=== PATIENT | female | born 1935 | race Caucasian/White ===

== ENCOUNTER 2017-09-14 15:36 | Emergency (ER) | payer MEDICARE, BC ==
--- NOTE | 2017-09-14 19:11 | RAD ---
INDICATION: Cough x2 weeks COMPARISON: None TECHNIQUE: PA and lateral views of the chest were obtained. FINDINGS: Again noted are surgical clips overlying the left axilla. The heart and mediastinum are normal in size and contour. There is been interval appearance of a 1.1 cm elongate density overlying the mid-level left lung and was not definitely seen on the most recent chest x-ray. On the lateral view this density is likely seen in the anterior left lung and has a density more consistent with a granuloma as opposed to a soft tissue nodule. Otherwise the lungs are grossly clear. There is no evidence of large pleural effusion. Visualized bones are normal for the patient's age. There is no radiographic evidence of free air beneath the diaphragm IMPRESSION: LIKELY INTERVAL APPEARANCE OF PARTIALLY CALCIFIED LUNG NODULE DESCRIBED ABOVE IN THIS OTHERWISE NONACUTE CHEST X-RAY.
[2017-09-14 19:47] VITALS: BP 136/70
--- NOTE | 2017-09-14 21:19 | UC ---
Charley Galindo Julia, scribed for Nghia Gonsalves MD on 09/14/17 at 1821 . General HPI - HPI Summary HPI Summary: This patient is a 82 year old M presenting to [facility] accompanied by her with a chief complaint of cough and chest congestion since a influenza diagnosis on 08/30/17 worsening this morning. Patient reports fatigue, weakness, SOB since this morning, clear rhinorrhea, decreased appetite, and currently resolved mild nausea. Patient denies chest pain, ear pain, urinary symptoms, diarrhea, body aches, and bloody stool. Today she states a low blood glucose of 81, that she was able to get up to 121. - History of Current Complaint Chief Complaint: UCRespiratory Stated Complaint: RESP COMPLAINT Time Seen by Provider: 09/14/17 18:06 Hx Obtained From: Patient Hx Last Menstrual Period: NA Onset/Duration: Lasting Weeks, Still Present, Worse Since - this morning Timing: Constant Pain Intensity: 0 Pain Location at: negative Character: chest congestion Associated Signs & Symptoms: Positive: Other - reports fatigue, weakness, SOB since this morning, clear rhinorrhea, decreased appetite, and currently resolved mild nausea - Allergy/Home Medications Allergies/Adverse Reactions: Allergies Allergy/AdvReac Type Severity Reaction Status Date / Time MS Amoxicillin [Amoxicillin] Allergy Rash Verified 09/14/17 16:08 MS Penicillins [Penicillins] Allergy Hives Verified 09/14/17 16:08 MS KIZZY Inhibitors AdvReac Coughing Verified 09/14/17 16:08 [KIZZY Inhibitors] MS Codeine [Codeine] AdvReac Dizziness, Verified 09/14/17 16:08 sweating MS Tramadol [Tramadol] AdvReac Nausea Verified 09/14/17 16:08 PMH/Surg Hx/FS Hx/Imm Hx Endocrine History: Diabetes Other Cardiovascular History: denies hx of CHF - Surgical History Surgical History: Yes Surgery Procedure, Year, and Place: APPENDIX. Tonsillectomy. right breast biopsy. right big toe neuroma. histerectomy. sgmental mastectomy. colon surgery - secall mass, no cancer. right eye cataract. ureter stent x4. left eye cataract. left knee arthroscopy - Family History Known Family History: Negative: Cardiac Disease, Diabetes Family History: Pt denies family medical history. - Social History Alcohol Use: None Substance Use Type: None Smoking Status (MU): Never Smoked Tobacco Have You Smoked in the Last Year: No Review of Systems Constitutional: Fatigue - and weakness ENT: Negative - ear ache, Nasal Discharge Respiratory: Shortness Of Breath, Cough - with chest congestion, Other Cardiovascular: Negative - chest pain Gastrointestinal: Negative - diarrhea, bloody stool, Nausea - currently resolved , Other - decreased appetite Genitourinary: Negative All Other Systems Reviewed And Are Negative: Yes Physical Exam Triage Information Reviewed: Yes Vital Signs: Initial Vital Signs Temp 98.5 F 09/14/17 16:02 Pulse 76 09/14/17 16:02 Resp 20 09/14/17 16:02 BP 148/70 09/14/17 16:02 Pulse Ox 96 09/14/17 16:02 Vital Signs Reviewed: Yes - Additional Comments General: mild ill appearing, no pain distress Skin: warm, color reflects adequate perfusion, dry Head: normal Eyes: EOMI, OCTAVIO ENT: rhinorrhea Neck: supple, nontender Respiratory: CTA, breath sounds present Cardiovascular: RRR Abdomen: soft, nontender Bowel: present Musculoskeletal: normal, strength/ROM intact, no pedal edema Neurological: normal, sensory/motor intact, A&O x3 Psychological: affect/mood appropriate Diagnostics - Radiology CXR Radiology Interpretation Completed By: Radiologist - LIKELY INTERVAL APPEARANCE OF PARTIALLY CALCIFIED LUNG NODULE DESCRIBED ABOVE IN THIS OTHERWISE NONACUTE CHEST X-RAY. ED Physician has reviewed this report. Course/Dx - Course Course Of Treatment: BP noted and advised to follow up with PCP. DISCUSSED TREATING WITH ABX AND CLOSE F/U WITH PMD. DISCUSSED WE DO NOT HAVE LABS THAT WILL COME BACK UNTIL TOMORROW. PATIENT DECLINED LAB WORK HERE IN CLINIC. DISCUSSED GOING TO THE EMERGENCY DEPARTMENT FOR ANY WORSENING OF HER CONDITION. F/U PMD; GO TO ED IF WORSE. - Differential Dx - Multi-Symptom Provider Diagnoses: BRONCHITIS. PULMONARY NODULE Discharge - Discharge Plan Condition: Stable Disposition: HOME Prescriptions: Azithromyxin KASH (NF) [Z-Kash (Zithromax) 250 mg tabs #6] 2 tab PO .TODAY, THEN 1 DAILY #6 tab Patient Education Materials: Acute Bronchitis (ED), Pulmonary Nodules (ED) Referrals: Jing Montiel MD [Primary Care Provider] - Additional Instructions: Your blood pressure was elevated during todays visit; please follow up with your primary care provider within a week for further evaluation. FOLLOW UP WITH YOUR DOCTOR. GO TO THE EMERGENCY DEPARTMENT FOR ANY WORSENING OF YOUR CONDITION OR QUESTIONS OR CONCERNS. The documentation as recorded by the Charley milian Julia accurately reflects the service I personally performed and the decisions made by me, Nghia Gonsalves MD.
== END 2017-09-14 19:35 | disposition home or self-care (01) ==
LOC: UCEAST 15:36
DX: J40 Bronchitis, not specified as acute or chronic (principal); R91.1 Solitary pulmonary nodule; Z88.5 Allergy status to narcotic agent; Z88.0 Allergy status to penicillin; E11.9 Type 2 diabetes mellitus without complications
CPT/HCPCS: 71046; 99212; G0463

== ENCOUNTER 2018-04-15 06:13 | Observation (INO) | payer MEDICARE, BC ==
--- NOTE | 2018-04-08 10:12 | HP ---
CC: Dr. Jing Montiel; Dr. Neal * PREOPERATIVE HISTORY AND PHYSICAL: DATE OF ADMISSION: 04/15/18 DATE OF PREOPERATIVE HISTORY AND PHYSICAL: 04/06/18. This patient is scheduled for observation overnight on 04/15/18 for a left mastectomy by Dr. Correa. ATTENDING SURGEON: Dr. Tasha Correa * (dictated by Love Gomez NP). CHIEF COMPLAINT: Left breast cancer. HISTORY OF PRESENT ILLNESS: The patient is an 82-year-old female, recently evaluated by Dr. Correa for consideration of mastectomy for left breast cancer. She had not noticed any breast changes herself, but a routine mammogram picked up a new change. She underwent biopsies of 2 areas in the left breast and both show cancer. They have been described as somewhat far from each other, so a left mastectomy has been advised. She denies any breast pain or nipple discharge. Her daughter had breast cancer at age 41 and 56. The patient's menarche was at 11, menopause at age 54, first delivery at age 20. She has never had any relatives with ovarian cancer. She did receive radiation to the chest for left breast cancer previously some years ago. Dr. Correa has examined the patient and discussed the findings with her. She has recommended left mastectomy and explained the rationale for the surgery, the nature of the surgical procedure, the relevant risks and benefits and today, I reviewed the overnight stay in hospital, the use of a Diego- Daniel drain, and postoperative care and recovery. The patient has had a chance to ask questions and stated that she is comfortable with the information and the answers given to her questions. She will sign surgical consent on the day of surgery. PAST MEDICAL HISTORY: Significant for insulin-treated type 2 diabetes, hypertension, hypothyroidism, renal insufficiency with one well-functioning kidney, gastroesophageal reflux disease, dyslipidemia, left breast cancer, colon cancer, and osteoarthritis specifically in the pelvic region and hips. PAST SURGICAL HISTORY: Segmental left mastectomy for breast cancer in 1990, colon resection for colon cancer 2000, left knee arthroscopy surgery, bilateral cataract extractions, hysterectomy, tonsillectomy, and appendectomy. She also had ureteral stents for nephrolithiasis. MEDICATIONS: 1. Omeprazole 20 mg p.o. daily. 2. Lantus SoloSTAR 64 units subcutaneously every morning. 3. Allopurinol 100 mg p.o. daily. 4. Atenolol 25 mg p.o. daily. 5. Atorvastatin 10 mg 2 tablets p.o. every 3 days. 6. Hydrochlorothiazide 12.5 mg p.o. daily. 7. Levothyroxine 125 mcg p.o. daily. 8. Losartan 50 mg p.o. daily. 9. Potassium citrate extended release 5 mEq 2 tablets p.o. 4 times a day. 10. Vitamin B12 of 1000 mcg p.o. daily. 11. Vitamin D3 of 1000 international units daily. 12. Fluticasone 2 sprays in each nostril daily. ALLERGIES: PENICILLIN caused hives, PREVNAR caused fever and arm swelling. FAMILY HISTORY: Daughter with history of breast cancer. No known ovarian cancer. Father at age 79 with history of abdominal aneurysm. Mother at age 85 with history of colon cancer. 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 She denies the use of alcohol or other substances. REVIEW OF SYSTEMS: Constitutional: No fevers or chills or excessive fatigue or weight loss. Endocrine: Type 2 diabetes, insulin dependent. Fingerstick blood sugar at home in the morning 110 to 120, recent hemoglobin A1c of 6.9. She is also treated for hypothyroidism. Respiratory: No dyspnea on exertion. No chronic cough. Cardiovascular: No chest pain or palpitations. She did have an EKG on 01/28/[address] Powell's office that was read as abnormal; she had an echocardiogram on 02/01/18 with ejection fraction of 55%; because of the abnormal EKG, Dr. Montiel initiated a preoperative cardiac workup through the [facility] and the patient is scheduled for a stress treadmill test and an echocardiogram on 04/13/18 and a followup visit with Dr. Neal on that same day; we will obtain those results as soon as possible to determine if she can proceed with surgery as scheduled. She is treated for hypertension by Dr. Montiel. Gastrointestinal: She is treated for GERD; she denies any nausea, vomiting, diarrhea, or chronic constipation. She denies any blood per rectum. She had surgery for colon cancer in 2000 and did not require chemotherapy or radiation. Genitourinary: She is followed by Dr. Acharya for renal insufficiency and states that she has one functioning kidney and had nephrolithiasis with ureteral stents in 2006; her serum creatinine is typically elevated and the most recent one on 04/06/18 was 1.46, in August of 2017 it was 1.54. She denies any dysuria. Musculoskeletal: She has osteo-arthritis, specifically in the pelvic region and hips and at some point wishes to undergo hip replacement. Neurologic: She denies any history of concussion or seizures or blurred vision. General: She denies any history of deep vein thrombosis or pulmonary embolism. She has never received a blood transfusion. She states with general anesthesia, she has a slow recovery and has had vomiting. PHYSICAL EXAMINATION GENERAL SURVEY: The patient is an 82-year-old female, well-developed, well- nourished, obese, in no acute distress. VITAL SIGNS: Height 5 feet 4 inches, weight 215 pounds, body mass index 36.9. Blood pressure 126/78, pulse 66 and regular, respiratory rate 18, temperature 97.5. HEENT: Benign. NECK: Supple. No cervical lymphadenopathy. No thyromegaly. LUNGS: Breath sounds bilaterally clear and equal. HEART: Regular rate and rhythm. No murmurs or rubs appreciated. ABDOMEN: Active bowel sounds, well-healed surgical scars, soft, nondistended, nontender throughout. No obvious masses, organomegaly, or evidence of ventral hernia. BREASTS: Left breast is smaller and deformed from scars in the upper outer quadrant and axilla; there is also a small scar in the lateral inner quadrant of the right breast close to the nipple areolar complex; palpation revealed dense tissue without discrete mass in the right breast; the left breast has a large firm irregular area in the upper outer quadrant that is fixed to the overlying skin, but not to the chest wall. There is also a smaller firm irregular area in the left outer quadrant. There is no nipple discharge. There is no palpable supraclavicular lymphadenopathy. There is no adenopathy in the right axilla, but the scar tissue in the left axilla limits the ability to assess. BACK: No CVA tenderness. PELVIC: Exam is deferred. RECTAL: Exam is deferred. EXTREMITIES: Warm without skin ulcerations. There is nonpitting edema of both ankles. NEUROLOGIC: Alert and oriented x3. Steady gait. SKIN: Warm, dry, intact. IMPRESSION: Left breast cancer. PLAN: Admit to Dr. Correa's service for an overnight observation after left mastectomy on 04/15/18. EFRAIN GOMEZ, STAPLE CUTTER [id number]/[facility] #: [id number] SACHIN
[~2018-04-15 06:13] MED LIST: Buffered Lidocaine 0.9% SYRIN* 5 ML/SYR SYRINGE INTRADERM ONE; DiMENhydriNATE IV* 50 MG/ML VIAL IV PUSH PRN; Famotidine IV* 10 MG/ML 2 ML (20 mg) IV ONE; Morphine INJ* 2 MG/ML 1 ML SYRINGE (TWO MG - NEW SYRINGE VERSION) IV PRN; Naloxone* 0.4 MG/ML 1 ML VIAL IV PRN; Ondansetron TAB* 4 MG PO ONE; PROCHLORPERAZINE INJ 5 MG/ML 2 ML VIAL IV PRN; fentaNYL* 50 MCG/ML 2 ML VIAL (100 MCG VIAL) IV PRN; oxyCODONE/Acetamin 5/325 MG* TAB PO PRN
[2018-04-15] MEDS ORDERED: Clindamycin 900 MG/D5W BAG(*) 900 MG/50 ML BAG IVPB ONE (07:01)
[2018-04-15] MEDS ORDERED: Heparin VIAL(*) 5000 UNITS/ML VIAL (FIVE THOUSAND) ONE (07:01)
[2018-04-15] MEDS ORDERED: Bupivacaine 0.25% SDV PF* 10 ML VIAL INJ ONE (07:03)
[2018-04-15] MEDS ORDERED: Famotidine IV* 10 MG/ML 2 ML (20 mg) ONE (07:07)
[2018-04-15] MEDS ORDERED: Ondansetron ODT TAB* 4 MG ONE (07:07)
[2018-04-15] MEDS ORDERED: fentaNYL* 50 MCG/ML 2 ML VIAL (100 MCG VIAL) ONE ×2 (07:20→10:03)
[2018-04-15] MEDS ORDERED: KETAMINE HCL* 50 MG/ML 10 ML VIAL ONE (07:20)
[2018-04-15] MEDS ORDERED: Midazolam* 1 MG/ML 2 ML VIAL (2 MG) ONE (07:20)
[2018-04-15] MEDS ORDERED: Morphine VIAL* 10 MG/ML 1 ML VIAL ONE (08:47)
[2018-04-15] MEDS ORDERED: Propofol* 10 MG/ML 20 ML BTL IV PUSH ONE (09:13)
[2018-04-15] MEDS ORDERED: Lidocaine 2% PF * 5 ML VIAL ONE (09:13)
--- NOTE | 2018-04-15 09:30 | OP ---
Operative Report - Blank - Operative Report Date of Operation: 04/15/18 Note: Brief Operative Note Preop Dx: Left Breast Cancer Postop Dx: same Procedure: Left Mastectomy Anesthesia: GET Surgeon: Sunny Electrical Tech: SUZE Claudio Fluids: 850 ml crystalloid EBL: < 50 ml Specimen: Left Breast; add'l skin Drains: 1 BERNADETTE Findings: dictated
[2018-04-15] MEDS ORDERED: Acetaminophen TAB* 325 MG PO PRN (09:41)
[2018-04-15] MEDS ORDERED: Omeprazole CAP* 20 MG PO PRN (09:45)
[2018-04-15] MEDS ORDERED: Dextrose 50% Syringe 50 ML* 25 GM/50 ML SYRINGE IV PUSH PRN (09:52)
[2018-04-15] MEDS ORDERED: HYDROcodone/ACETAMIN 5-325 MG* 1 TAB PO PRN (09:53)
[2018-04-15] MEDS ORDERED: Morphine INJ* 2 MG/ML 1 ML SYRINGE (TWO MG - NEW SYRINGE VERSION) IV PRN (10:02)
[2018-04-15] MEDS ORDERED: Ondansetron INJ* 2 MG/ML VIAL ONE (11:30)
[2018-04-15] MEDS: Ondansetron INJ* 2 MG/ML VIAL IV PRN ×2 (11:32→17:49)
[2018-04-15] MEDS: Insulin LISPRO* 1 UNITS UNIT SUBCUT SCH ×2 (13:13→17:58)
[2018-04-15] MEDS ORDERED: PROCHLORPERAZINE INJ 5 MG/ML 2 ML VIAL IV PRN (14:40)
[2018-04-15 14:58] LABS: ABS Basophils 0 10^3/ul (0-0.2); ABS Eosinophils 0 10^3/ul (0-0.6); ABS Lymphocytes 0.8 10^3/ul (1.0-4.8); ABS Monocytes 0.4 10^3/ul (0-0.8); ABS Neutrophils 7.2 10^3/ul (1.5-7.7); ABS Nucleated RBC 0 10^3/ul; Eosinophil % 0.5 % (0-6); Hematocrit 36 % (35-47); Lymphocyte % 8.9 % (25-47); Mean Corpuscular HGB Conc 33 g/dl (31-36); Mean Corpuscular Hemoglobin 29 pg (27-31); Mean Corpuscular Volume 89 fL (80-97); Mean Platelet Volume 10.4 um3 (7.4-10.4); Nucleated Red Blood Cells % 0; Platelet Count 131 10^3/ul (150-450); Red Blood Count 4.07 10^6/ul (4.00-5.40); Red Cell Distribution Width 16 % (10.5-15); White Blood Count 8.5 10^3/ul (3.5-10.8)
--- NOTE | 2018-04-15 15:05 | RAD ---
INDICATION: Shortness of breath. COMPARISON: Comparison is made with a prior study from November 09, 2017. TECHNIQUE: A portable view of the chest was obtained. FINDINGS: Cardiac and mediastinal contours appear to be within normal limits. The lungs are clear. No pleural effusion is seen. There is a surgical drain which projects over the left hemithorax. There are several surgical clips in the left axillary region. IMPRESSION: NO EVIDENCE FOR ACUTE DISEASE.
[2018-04-15 16:20] LABS: EGFR Non-African American 31.7 (>60)
[2018-04-15] MEDS: Potassium Citrate (NF) 10 MEQ TAB PO SCH (21:00)
--- NOTE | 2018-04-15 23:25 | CONS ---
CC: Dr. Jing Montiel.* CONSULTATION REPORT: DATE OF CONSULT: 04/15/18 PROVIDER: Johnnie Ahumdaa NP ATTENDING PHYSICIAN: Dr. Sinclair (report dictated by Johnnie Ahumada NP). PRIMARY CARE PROVIDER: Dr. Jing Montiel. REFERRING PHYSICIAN: Dr. Tasha Correa. REASON FOR CONSULT: Shortness of breath and co-medical management. HISTORY OF PRESENT ILLNESS: Ms. Stack is an 82-year-old female, who underwent an elective left mastectomy today for left breast cancer with Dr. Tasha Correa. She has a past medical history significant for insulin-dependent type 2 diabetes, hypertension, hypothyroidism, renal insufficiency, GERD, history of prior left breast cancer, history of colon cancer. Today, the patient had a successful surgery. Hospital Medicine was asked to consult regarding the patient complaining of shortness of breath and co-medical management. The patient was seen and evaluated on the surgical unit where she was found to be lying in bed, reporting she has had some mild dizziness with nausea and dry heaving postoperatively. Per the patient, this is common for her postoperatively from prior surgeries. She received some Zofran, which did not relieve her symptoms. However, she does report currently she feels a little better. In regards to her shortness of breath, she reported that it was "difficult to breathe," however, this was secondary to her bandage on the chest wall being too tight and once Dr. Correa loosened the bandage, she said that it resolved the feeling of not being able to take a deep breath. She currently denies shortness of breath or chest pain. She currently reports that her postoperative pain is well controlled at this time. She states that her diabetes is well controlled at home with blood sugars ranging from low 100s to 120. She took half dose of her Lantus this morning prior to surgery, which was 25 units. Family is at the bedside. PAST MEDICAL HISTORY: 1. Insulin-dependent type 2 diabetes. 2. Hypertension. 3. Hypothyroidism. 4. Renal insufficiency with 1 well functioning kidney. 5. GERD. 6. Dyslipidemia. 7. History of left breast cancer. 8. History of colon cancer. 9. Osteoarthritis. PAST SURGICAL HISTORY: 1. Segmental left mastectomy for breast cancer in 1990. 2. Colon resection for colon cancer in 2000. 3. Left knee arthroplasty. 4. Bilateral cataract extractions. 5. Hysterectomy. 6. Tonsillectomy. 7. Appendectomy. 8. History of ureteral stents for nephrolithiasis. MEDICATIONS: Home medications: 1. Hydrochlorothiazide 12.5 mg p.o. q.a.m. 2. Potassium citrate 10 mEq p.o. b.i.d. 3. Omeprazole 20 mg p.o. q.a.m. p.r.n. 4. Losartan 50 mg p.o. q.a.m. 5. Synthroid 125 mcg p.o. q.a.m. 6. Insulin glargine 60 units subcu q.a.m. 7. Vitamin B12 1000 mcg p.o. q.a.m. 8. Vitamin D3 one tab p.o. q.a.m. 9. Lipitor 10 mg p.o. q.a.m. 10. Atenolol 25 mg p.o. q.a.m. 11. Allopurinol 100 mg p.o. q.a.m. Active medications: 1. Acetaminophen 650 mg p.o. q.4 hours p.r.n. 2. Atenolol 25 mg p.o. q.a.m. 3. Lipitor 10 mg p.o. q.a.m. 4. Mcfaddin 5/325 mg 1 tab p.o. q.4 hours p.r.n. 5. Lantus 30 units subcu q.a.m. 6. Lispro sliding scale. 7. LR 70 mL an hour. 8. Synthroid 125 mcg p.o. q.a.m. 9. Morphine sulfate 2 mg IV q.4 hours p.r.n. 10. Omeprazole 20 mg p.o. daily. 11. Zofran 4 mg IV q.6 hours p.r.n. 12. Potassium citrate 10 mEq p.o. b.i.d. ALLERGIES: AMOXICILLIN, CODEINE, PENICILLIN, TRAMADOL, KIZZY INHIBITORS, PNEUMOCOCCAL VACCINATION. FAMILY HISTORY: Her daughter has a history of breast cancer. Her mother at age 85 of a history of colon cancer. Father had a history of abdominal aneurysm. SOCIAL HISTORY: She is . She lives at home with her , who is her healthcare proxy. Denies history of tobacco abuse. No alcohol use. REVIEW OF SYSTEMS: A 14-point review of systems was performed. All the pertinent positives and negatives are mentioned in the history of present illness. Otherwise are negative. PHYSICAL EXAM: Vital Signs: Temperature 97.3, heart rate 74, respirations 16, O2 sat 100% on room air, blood pressure 116/54. General Appearance: A well- developed, ill 82-year-old female, lying in bed. It appears that she feels mildly unwell; however, she is alert and oriented x3. HEENT: Head is normocephalic and atraumatic. Pupils are equal and reactive to light. Oropharynx is clear. Dry mucous membranes. Neck is supple. Cardiac: S1, S2. Regular rate and rhythm. No murmur are noted. No lower extremity edema noted. Lungs are clear to auscultation bilaterally with good aeration throughout. Abdomen: Obese, soft. Hyperactive bowel sounds throughout. No tenderness upon palpation. Extremities: Moves all extremities. Strength is 5/ 5 throughout. Neuro: Alert and oriented x3. No focal deficits noted. Speech is clear. ASSESSMENT AND PLAN: Ms. Stack is an 82-year-old female with a history of left breast cancer, who underwent a left breast mastectomy today with Dr. Correa. [facility] Medicine was asked to consult in regards to shortness of breath and co- medical management. 1. Status post left mastectomy. Disposition per Dr. Correa's surgical team. The patient is having some postop nausea, vomiting, and dizziness. She currently reports she feels a little bit better. Recommend to continue IV fluids, Zofran p.r.n. We will try a dose of Compazine to see if this helps. Once this has resolved, I encouraged the patient to ambulate with staff due to she has some gas and bloating and this may make her feel better with movement. Pain management. Bowel regimen. 2. Shortness of breath. As stated in the HPI, this was secondary to her postsurgical band being too tight around the chest wall. This has been loosened and the sensation has resolved. I did obtain a chest x-ray, which shows no evidence for acute disease. She is oxygenating well on room air. 3. Insulin-dependent type 2 diabetes. Fingerstick blood glucose a.c. with lispro sliding scale. Agree with the surgical team's plan to reduce her home dose Lantus to 50% starting with 30 units subcu q.a.m. She did give herself 25 units this morning. Currently, her sugars are well controlled. Last hemoglobin A1c was 6.8 on 08/06/17. 4. Chronic kidney disease. It appears baseline creatinine is around 1.5. I have sent a BMP to check labs post-operatively. 5. Gastroesophageal reflux disease. Continue omeprazole. 6. Hypertension. Continue atenolol. 7. Hyperlipidemia. Continue Lipitor. 8. Hypothyroidism. Continue Synthroid. 9. DVT prophylaxis: SCDs. 10. Code status: Full code. TIME SPENT: Approximately 45 minutes was spent on this consultation. JOHNNIE AHUMADA, SILK PRINTER [id number]/[facility] #: [id number] SACHIN
[2018-04-16] MEDS ORDERED: Levothyroxine TAB* 125 MCG TAB PO SCH (06:00)
--- NOTE | 2018-04-16 07:19 | OP ---
CC: [facility]; Dr. Jing Montiel. OPERATIVE REPORT: DATE OF OPERATION: 04/15/18 DATE OF : 33 SURGEON: Tasha Correa MD ADULT MANAGER: SUZE Avelar ANESTHESIOLOGIST: ANESTHESIA: PRE-OP DIAGNOSIS: Left breast cancer POST-OP DIAGNOSIS: Left breast cancer OPERATIVE PROCEDURE: Left mastectomy INDICATIONS: Ms. Stack is an 82-year-old woman who has had a diagnosis of breast cancer being fco kathrin with hormonal therapy. She seemed to respond somewhat to the hormonal therapy, and plans were ma de for surgical intervention. She was brought to the operating room and placed on the OR table in a supine position and given general anesthesia. DESCRIPTION OF PROCEDURE: The left breast was prepped and draped in the usual sterile fashion. Afte r infiltrate with local anesthetic an incision was made first in the superior breast encompassing the nipple areolar complex and the mass which was on the upper outer quadrant of the breast and noted to be adherent to the skin, but not to the chest wall. Then subcutaneous tissue was divided with elect rocautery to create flaps medially to the sternum, superiorly to the clavicle and laterally to the la tissimus dorsi muscle. Then an inferior incision was made encompassing the nipple areolar complex an d the mass and this created an ellipse of skin around the nipple areolar complex and the mass itself, subcutaneous tissue was then divided with electrocautery again to create flaps medially to the edmond um, inferiorly to the rectus muscle and laterally to the latissimus dorsi muscle. Once the breast wa s completely freed from the skin, it was elevated off the chest wall and using electrocautery divided from the chest wall. Once it was removed, it was handed off as a specimen with the usual markings. Hemostasis was assured with electrocautery and then closure was accomplished in order to create a sm ooth contour of the chest wall, some excess skin had to be removed from the medial aspect of the inci puneet and the lateral aspect of the incision. These were also handed off as specimen and then closure was accomplished with 2-0 Vicryl to reapproximate the subcutaneous tissue along with some 3-0 Vicryl stitches and then the skin was closed with 4-0 Vicryl in a subcuticular fashion. Prior to completin g the closure a BERNADETTE drain was placed under the flaps of the mastectomy site emerging from a stab wound in the anterior axillary line inferiorly. This was secured with a 3-0 Prolene stitch. Local was in stilled through the BERNADETTE once closure was completed and Steri-Strips and a dry fluffy dressing were nic lied. All sponge and instrument counts were correct. The patient tolerated the procedure well and w as transferred to Recovery in a stable condition. [id number]/[facility] #: [id number]
[2018-04-16 07:50] VITALS: BP 117/49
[2018-04-16] MEDS: Insulin LISPRO* 1 UNITS UNIT SUBCUT SCH (08:15)
[2018-04-16] MEDS ORDERED: Atenolol TAB* 25 MG PO SCH (09:00)
[2018-04-16] MEDS ORDERED: Atorvastatin* 20 MG TAB PO SCH (09:00)
[2018-04-16] MEDS ORDERED: Insulin GLARGINE(*) 1 UNITS UNIT SUBCUT SCH (09:00)
[2018-04-16] MEDS: Potassium Citrate (NF) 10 MEQ TAB PO SCH (09:06)
--- NOTE | 2018-04-16 09:27 | PN ---
Progress Note - Progress Note Date of Service: 04/16/18 Note: Surgery Ms. Stack feels better this morning. Appreciate input from hospitalist service. She has not yet had real food, but she is willing to try. She denies pain. Vital Signs 04/15/18 04/15/18 04/15/18 09:30 09:35 09:45 Temperature Pulse Rate 69 66 63 Respiratory 16 16 16 Rate Blood Pressure 144/75 134/66 147/69 (mmHg) O2 Sat by Pulse 100 89 94 Oximetry 04/15/18 04/15/18 04/15/18 10:00 10:04 10:15 Temperature Pulse Rate 64 64 Respiratory 14 15 11 Rate Blood Pressure 151/65 145/70 (mmHg) O2 Sat by Pulse 96 99 Oximetry 04/15/18 04/15/18 04/15/18 10:30 10:45 11:00 Temperature Pulse Rate 66 65 64 Respiratory 15 19 29 Rate Blood Pressure 156/69 152/75 144/71 (mmHg) O2 Sat by Pulse 97 93 98 Oximetry 04/15/18 04/15/18 04/15/18 11:15 11:25 11:30 Temperature 97.1 F Pulse Rate 73 Respiratory 16 12 12 Rate Blood Pressure 124/58 (mmHg) O2 Sat by Pulse 99 Oximetry 04/15/18 04/15/18 04/15/18 12:28 13:24 15:23 Temperature 97.3 F 97.0 F 97.4 F Pulse Rate 74 73 74 Respiratory 16 16 18 Rate Blood Pressure 116/54 113/44 124/42 (mmHg) O2 Sat by Pulse 100 100 91 Oximetry 04/15/18 04/15/18 04/15/18 17:26 19:41 21:50 Temperature 97.5 F Pulse Rate 76 65 Respiratory 18 16 18 Rate Blood Pressure 123/46 112/49 (mmHg) O2 Sat by Pulse 96 97 Oximetry 04/15/18 04/16/18 04/16/18 23:19 03:40 07:46 Temperature 97.8 F 97.9 F 98.1 F Pulse Rate 73 60 62 Respiratory 16 16 18 Rate Blood Pressure 124/37 98/35 117/49 (mmHg) O2 Sat by Pulse 94 96 98 Oximetry 04/16/18 07:51 Temperature Pulse Rate Respiratory 18 Rate Blood Pressure (mmHg) O2 Sat by Pulse Oximetry Mastectomy site: clean and dry; flaps viable, no signs infection. BERNADETTE: serosanguinous drainage. Intake & Output 04/15/18 04/16/18 04/16/18 22:59 06:59 14:59 Intake Total 100 1228 Output Total 150 817 Balance -50 411 Intake: IV Fluids 988 LR 988 Oral 100 240 Output: BERNADETTE #1 50 17 Urine 100 800 Other: Estimated Void Large # Voids 1 Laboratory Results - last 24 hr 04/15/18 04/15/18 04/15/18 09:25 12:33 14:43 WBC 8.5 RBC 4.07 Hgb 12.0 Hct 36 MCV 89 MCH 29 MCHC 33 RDW 16 H Plt Count 131 L MPV 10.4 Neut % (Auto) 84.9 H Lymph % (Auto) 8.9 L [place] % (Auto) 5.3 Eos % (Auto) 0.5 Baso % (Auto) 0.4 Absolute Neuts (auto) 7.2 Absolute Lymphs (auto) 0.8 L Absolute Monos (auto) 0.4 Absolute Eos (auto) 0 Absolute Basos (auto) 0 Absolute Nucleated RBC 0 Nucleated RBC % 0 Sodium Potassium Chloride Carbon Dioxide Anion Gap BUN Creatinine Est GFR ( Amer) Est GFR (Non-Af Amer) BUN/Creatinine Ratio Glucose POC Glucose (mg/dL) 122 H 150 H Calcium 04/15/18 04/15/18 04/16/18 14:43 17:53 07:33 WBC RBC Hgb Hct MCV MCH MCHC RDW Plt Count MPV Neut % (Auto) Lymph % (Auto) [place] % (Auto) Eos % (Auto) Baso % (Auto) Absolute Neuts (auto) Absolute Lymphs (auto) Absolute Monos (auto) Absolute Eos (auto) Absolute Basos (auto) Absolute Nucleated RBC Nucleated RBC % Sodium 139 Potassium 3.9 Chloride 106 Carbon Dioxide 22 Anion Gap 11 BUN 30 H Creatinine 1.56 H Est GFR ( Amer) 38.4 Est GFR (Non-Af Amer) 31.7 BUN/Creatinine Ratio 19.2 Glucose 160 H POC Glucose (mg/dL) 167 H 102 H Calcium 9.2 A/P: POD# 1 s/p left mastectomy; doing well. If she tolerates regular diet, she can go home.
== END 2018-04-16 11:00 | disposition home or self-care (01) ==
LOC: OR 06:13 → INTOOBSV 09:34 → SSU 09:34
PROVIDERS: ADMIT Surgery; ATTEND Surgery
PROC: 0HTU0ZZ Resection of Left Breast, Open Approach (ICD-10-PCS; principal; 2018-04-15 07:30)
DX: C50.912 Malignant neoplasm of unspecified site of left female breast (principal); E11.9 Type 2 diabetes mellitus without complications; I10 Essential (primary) hypertension; E03.9 Hypothyroidism, unspecified; N28.9 Disorder of kidney and ureter, unspecified; K21.9 Gastro-esophageal reflux disease without esophagitis; R06.02 Shortness of breath; E78.5 Hyperlipidemia, unspecified; Z79.4 Long term (current) use of insulin; Z79.899 Other long term (current) drug therapy; Z85.038 Personal history of other malignant neoplasm of large intestine
CPT/HCPCS: 36415; 71045; 80048; 85025; A9270-GY; G0378; J0780; J1644; J2250; J2270; J2405; J2704; J3010; J3490

== ENCOUNTER 2018-09-06 09:35 | Inpatient (IN) | payer MEDICARE, BC ==
--- NOTE | 2018-08-29 13:34 | HP ---
HISTORY AND PHYSICAL: DATE OF ADMISSION/SURGERY: 09/06/18 DATE OF OFFICE VISIT: 08/29/18 SURGEON: Melba Workman MD * (DICTATED BY SUZE COOK) PROCEDURE: Left total hip arthroplasty. CHIEF COMPLAINT: Left hip pain. HISTORY OF PRESENT ILLNESS: Ms. Stack is an 83-year-old female with continued complaints of left hip pain. She has failed conservative treatment and elected to proceed with the left total hip arthroplasty. PAST MEDICAL HISTORY: Hypertension, high cholesterol, diabetes, GERD, history of breast cancer, and hypothyroidism. PAST SURGICAL HISTORY: Lumpectomy, mastectomy. CURRENT MEDICATIONS: 1. Atorvastatin calcium 10 mg daily. 2. Omeprazole 20 mg daily. 3. Lantus 60 units in the morning. 4. Allopurinol 100 mg daily. 5. Atenolol 25 mg daily. 6. Hydrochlorothiazide 12.5 mg daily. 7. Levothyroxine 125 mcg daily. 8. Losartan potassium 50 mg daily. 9. Potassium citrate 5 mEq 4 times a day. 10. Vitamin B12, 11. Vitamin D3. 12. Anastrozole 1 mg a day. ALLERGIES: KIZZY INHIBITORS, AMOXICILLIN, PENICILLIN, PREVNAR, CODEINE and TRAMADOL both causing nausea and vomiting only. FAMILY HISTORY: Cancer. SOCIAL HISTORY: She is an 83-year-old female. She lives with her . She does not smoke or use drugs or alcohol. REVIEW OF SYSTEMS: A complete 14-point review of systems was reviewed with the patient, it was positive for diabetes, hypothyroidism, GERD, severe nausea and vomiting, following anesthesia. 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 PHYSICAL EXAMINATION GENERAL: She is well developed, well nourished in no acute distress. VITAL SIGNS: She stands 64 inches tall, weighs 208 pounds, her blood pressure is 136/68, her heart rate is 74. HEENT: Normocephalic, atraumatic. NECK: Supple, no palpable lymph nodes. PULMONARY: Lungs are clear to auscultation bilaterally. CARDIO: Regular rate and rhythm. Strong S1 and S2. ABDOMEN: Soft, nontender, nondistended. NEUROLOGIC: She is alert and oriented x3. MUSCULOSKELETAL: Left lower extremity skin is intact. There are no open wounds or abrasions. She walks with antalgic type gait favoring her left hip. She has decreased internal and external rotation of the left hip. She has 2+ dorsalis pedis pulse. Intact sensation to lower extremity. Muscular group strengths are intact at 5/5. ASSESSMENT AND PLAN: Ms. Stack is an 83-year-old female with end-stage osteoarthritis of the left hip. She has failed conservative treatment and elected to proceed with a left total hip arthroplasty. The surgery is scheduled for 09/06/[address] Workman discussed the risks and benefits of the surgery at today's visit and all of her questions were answered. She will follow with Dr. Workman 2 weeks after the surgery. SUZE COOK [id number]/[facility] #: [id number] MTDD
[~2018-09-06 09:35] MED LIST changes: -Buffered Lidocaine 0.9% SYRIN* 5 ML/SYR SYRINGE INTRADERM ONE; +Buffered Lidocaine 1% SYRIN* 1 ML/SYRINGE INTRADERM ONE; -DiMENhydriNATE IV* 50 MG/ML VIAL IV PUSH PRN; -Famotidine IV* 10 MG/ML 2 ML (20 mg) IV ONE; +Lactated Ringers 1000 ML Bag* 1,000 ML IV SCH; -Morphine INJ* 2 MG/ML 1 ML SYRINGE (TWO MG - NEW SYRINGE VERSION) IV PRN; -Naloxone* 0.4 MG/ML 1 ML VIAL IV PRN; -Ondansetron TAB* 4 MG PO ONE; -PROCHLORPERAZINE INJ 5 MG/ML 2 ML VIAL IV PRN; -fentaNYL* 50 MCG/ML 2 ML VIAL (100 MCG VIAL) IV PRN; -oxyCODONE/Acetamin 5/325 MG* TAB PO PRN
--- OUTSIDE RECORDS SUMMARY | 2018-09-06 09:39 | XMS REPORT | Continuity of Care Document ---
:1935 External Reference #:[id number] Author Name Wood Guerra M.D. Address [address] [place] [address] Care Team Providers Name Role Phone Jing Montiel M.D. Primary Care Physician Unavailable Payers Type Date Identification Numbers Payment Provider Subscriber Effective: Policy Number: [id number] Medicare - NGS Harleen Stack 2000 PayID: [id number] [address] [facility] [place] [address] Policy Number: [id number] [place] Plan Harleen Stack PayID: [id number] [address] [place] [address] Advance Directives Description No Information Available Problems Date Description Provider Status Onset: SOB - Shortness of breath Active Note: Occasional Onset: Hypothyroidism Active Onset: History of calculus of kidney Active Onset: Gastroesophageal reflux disease Active Onset: Type 1 diabetes mellitus Active Note: 2011 Onset: Type 2 diabetes mellitus Active Note: 2002 Onset: Ocular hypertension Active Onset: Arthritis Active Onset: Hypercholesterolemia Active Onset: Seasonal allergy Active Onset: Environmental allergy Active Onset: 08/26/2015 Epiretinal membrane Wood Guerra M.D. 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 Active Onset: Vertigo Active Onset: 08/27/2016 Vitreous degeneration Wood Guerra M.D. 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 ETOH Use Denies alcohol use Tobacco Use Start: Unknown Patient has never smoked Recreational Drug Use Denies Drug Use Smoking Status Reviewed: 08/26/18 Patient has never smoked Allergies, Adverse Reactions, Alerts Date Description Reaction Status Severity Comments 08/21/2015 Penicillin Active 08/21/2015 Perfume Active 08/21/2015 Vasotec Inactive Medications Medication Date Status Form Strength Qnty SIG Indications Ordering Provider Losartan Potassium / Active Tablets 50mg Cardina, 0000 Agustin Braxton Hydrochlorothiazide / Active Tablets 12.5mg Cardina, 0000 Agustin GuptaDCindy Atenolol / Active Tablets 25mg Cardina, 0000 Agustin M.DCindy Omeprazole 00/ Active Capsules 20mg Cardina, 0000 DR Agustin Braxton Lantus Solostar / Active Solution 100Unit/M Cardina, 0000 Pen-Injec Honey manning M.D. Allopurinol / Active Tablets 100mg Unknown 0000 Atorvastatin Calcium 00/ Active Tablets 10mg Unknown 0000 Levothyroxine Sodium 00/ Active Tablets 125mcg Unknown 0000 Potassium Citrate ER / Active Tablets 5Meq (540 Unknown 0000 ER mg) Vitamin B-12 / Active Tablets 1000mcg Unknown 0000 Sub Vitamin D3 / Active Capsules 1000Unit Unknown 0000 Anastrozole / Active Tablets 1mg Garbo, 0000 Douglas Braxton Artificial Tears 08/26/ Hx Solution 0.2-0.2-1 15ml as Wood Soler 2017 - % needed Charlie 08/26/ M.D. 2018 Meclizine HCL / Hx Tablets 25mg Cardigema, 0000 - Agustin 08/25/ M.D. 2019 Immunizations Description No Information Available Vital Signs Description No Information Available Results Description No Information Available Procedures Date Code Description Status 08/27/2017 78559 Scanning Computerized Opthalmic Diagnostic Posterior Seg Completed Retina 08/27/2017 54878 Determination Of Refractive State Completed 08/27/2017 98440 Est Patient Comprehensive Exam Completed 08/27/2016 29360 Scanning Computerized Opthalmic Diagnostic Posterior Seg Completed Retina 08/27/2016 45203 Est Patient Comprehensive Exam Completed 08/26/2015 47125 Scanning Computerized Opthalmic Diagnostic Posterior Seg Completed Retina 08/26/2015 07026 Determination Of Refractive State Completed 08/26/2015 26293 Est Patient Comprehensive Exam Completed 08/24/2014 02708 Scanning Computerized Opthalmic Diagnostic Posterior Seg Completed Retina 08/24/2014 52822 Est Patient Comprehensive Exam Completed 08/24/2013 75601 Est Patient Comprehensive Exam Completed 08/24/2013 60025 Determination Of Refractive State Completed 08/24/2013 52632 Scanning Computerized Opthalmic Diagnostic Posterior Seg Completed Retina 08/22/2012 95952 Scanning Computerized Opthalmic Diagnostic Posterior Seg Completed Retina 08/22/2012 54588 Determination Of Refractive State Completed 08/22/2012 44332 Est Patient Comprehensive Exam Completed 08/18/2011 20438 Remove Secondary Cataract, Laser (Yag) Completed 07/17/2011 15971 Est Patient Comprehensive Exam Completed 07/31/2010 98618 Determination Of Refractive State Completed 07/31/2010 52763 Est Patient Comprehensive Exam Completed 07/12/2009 79040 Scanning Laser W/Interp And Report Completed 07/12/2009 17926 Est Patient Intermediate Exam Completed 03/28/2009 29393 Recheck Completed 02/15/2009 68342 Remove Secondary Cataract, Laser (Yag) Completed 01/22/2009 55935 Est Patient Intermediate Exam Completed 01/22/2009 58860 Fundus Photography With Interpretation And Report Completed 07/11/2008 51473 Cataract Surgery Complex Completed 07/04/2008 64736 Ophthalmic Biometry Completed 07/04/2008 43863 Computerized Corneal Topography Completed 05/15/2008 81146 Scanning Laser W/Interp And Report Completed 05/15/2008 10400 Est Patient Comprehensive Exam Completed 10/14/2007 43462 Scanning Laser W/Interp And Report Completed 10/14/2007 95432 Est Patient Comprehensive Exam Completed 09/29/2006 18858 Est Patient Comprehensive Exam Completed 03/29/2006 06437 Determination Of Refractive State Completed 03/29/2006 29285 Est Patient Intermediate Exam Completed 11/25/2005 37617 Extracapsular Cataract Extraction W/Intraocular Lens Completed 11/10/2005 23370 Ophthalmic Biometry Completed 11/10/2005 29012 Unlisted Procedure, Ophthalmological Completed 11/09/2005 66620 Cancelled Appointment Completed 10/28/2005 95434 Rescheduled Appointment Completed 10/14/2005 12991 Rescheduled Appointment Completed 10/06/2005 45044 Unlisted Procedure, Ophthalmological Completed 10/06/2005 29189 Ophthalmic Biometry Completed 09/14/2005 89845 Est Patient Comprehensive Exam Completed 03/17/2005 91234 Determination Of Refractive State Completed 03/17/2005 47398 Est Patient Intermediate Exam Completed 09/15/2004 10768 Fundus Photography With Interpretation And Report Completed 09/15/2004 85827 Determination Of Refractive State Completed 09/15/2004 86140 Est Patient Comprehensive Exam Completed 09/05/2004 25215 Rescheduled Appointment Completed Encounters Type Date Location Provider Dx Diagnosis Office Visit 07/04/2008 Wood Guerra, Wood Guerra, 366.16 Senile Nuclear 8:30a , izzy [place]. Sclerosis / Cataract Plan of Treatment 08/26/2018 - Wood Guerra M.D.[id number] Type 2 diabetes mellitus with mild nonproliferative diabetic retinopathy without macular edema, bilateralComments: Smoking can increase the risk of developing or worsening any eye related disease , as well as affect your overall health. If you are a smoker, we strongly recommend that you quit.If you are not a smoker, we strongly recommend that you do not start. I can detect diabetic changes in your eyes. Proper control of your diabetes is important for the health of your eyes. It is important that you keep all of your follow up appointments. Dr. Guerra has sent a report to your primary care doctor, letting them know the current status of your retina.Follow up:1 Year Follow Up OCT MAC You can expect to have your eyes dilated at your next visit. If Dr. Guerra orders any additional testing, it may require extra time. We recommend that you bring sunglasses, as dilation drops often make you light sensitive until they wear off. We always recommend you bring someone to drive you home if you are uncomfortable driving with your eyes dilated. If you have any questions before your next visit, feel free to call our office at .[phone] Puckering of macula, left eyeComments:A Macular Pucker is a wrinkling of the retina tissue. It can cause distortion in your vision. Pleasecall the office if you notice a decrease or new distortion in your vision before then.Z96.1 Presence of intraocular lensComments:The artificial lens implants in both eyes appear to be stable at this time.H43.813 Vitreous degeneration, bilateralComments:You have a Posterior Vitreous Detachment. If you have any changes in your floaters or flashing lights, please contact this office.
--- OUTSIDE RECORDS SUMMARY | 2018-09-06 09:39 | XMS REPORT | Continuity of Care Document ---
:1935 External Reference #:[id number] Author Name Shandra Mayer Care Team Providers Name Role Phone Jing Montiel MD Primary Care Physician Unavailable Payers Type Date Identification Numbers Payment Provider Subscriber Policy Number: [id number] Medicare Harleen Stack PayID: [id number] [address] [place] [address] Effective: 1999 Policy Number: [id number] Medicare Harleen Stack Expires: 2018 PayID: [id number] [address] [place] [address] Policy Number: [id number] [facility] Harleen Stack PayID: [id number] [address] [place] [address] Advance Directives Description No Information Available Problems Date Description Provider Status Onset: 01/23/2015 Degenerative joint disease of pelvis Melba Workman M.D. Active Onset: 12/04/2016 Localized, primary osteoarthritis Melba Workman M.D. Active Onset: 12/30/2016 Insulin treated type 2 diabetes Jing Montiel M.D. Active mellitus Onset: 04/24/2018 Infiltrating duct carcinoma of breast Jing Montiel M.D. Active Onset: 04/15/2018 Type 2 diabetes mellitus Ivon Duggan NP Active Onset: 04/15/2018 Dyspnea Ivon Duggan NP Active Onset: 04/15/2018 Chronic kidney disease Ivon Duggan NP Active Onset: 04/15/2018 Morbid obesity Ivon Duggan NP Active Onset: 04/15/2018 Body mass index 40+ - severely obese Ivon Duggan NP Active Onset: 08/05/2018 Localized, primary osteoarthritis of Melba Workman M.D. 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, sons do the work ETOH Use Denies alcohol use Tobacco Use Start: Unknown Patient has never smoked Smoking Status Reviewed: 08/25/18 Patient has never smoked Exercise Type/Frequency Does not exercise Allergies, Adverse Reactions, Alerts Date Description Reaction Status Severity Comments 10/04/2013 Penicillin Active 07/13/2017 Diptheria Protein fever 101 and arm swelling Active Medications Medication Date Status Form Strength Qnty SIG Indications Ordering Provider Atorvastatin Active Tablets 10mg 90tabs 1 PO qd E78.5 Jing Calcium 019 Irais Montiel Accu-Chek Mallory Active Device 1units for use E11.22 Jing 019 twice Alonso MontielDCindy daily Z79.4 Accu-Check Mallory 08/04/2018 Active 100units For use bid E11.22 Jing Dinesh, Test Strips Irais Z79.4 Accucheck Mallory 08/04/2018 Active 100units for use E11.22 Jing Microlancets twice a day Irais Montiel Z79.4 [id number] BD Uf Pen 07/14/2018 Active 270units Use as Jing Needle Directed 3 Cotton, Times A M.D. Day Omeprazole 09/13/[address] 20 90caps 1 by mouth Jing mg every day Cotton, as needed M.DCindy Lyons 08/18/2017 Active Solution 10 90ml inject 55 Jing Pen-Inject 0U units in Cotton, ni the M.D. t/ morning ML Allopurinol Active Tablets 10 1 by mouth Vickieseini, 0m every day MD holly Beaver Atenolol Active Tablets 25 90tabs 1 by mouth Jing mg every day Irais Montiel Hydrochlorothiazide Active Tablets 12 90tabs 1 by mouth Jing .5 every day mg Devante Montiel.DCindy Levothyroxine Sodium Active Tablets 12 90tabs 1 by mouth Jing 5m every day Dinesh cg AlonsoDCindy Losartan Potassium Active Tablets 50 90tabs 1 by mouth Jing mg every day Irais Montiel Potassium Citrate ER Active Tablets ER 5M 2 by mouth Unknown eq four times (5 a day 40 mg ) Vitamin B 12 Active 10 1 tab by Unknown 00 mouth mc every day g Vitamin D3 Active Capsules 10 1 by mouth Unknown 00 every day Un it Anastrozole Active Tablets 1m 1 by mouth Unknown g every day Tamiflu 08/30/2017 - Hx Capsules 75 10caps 1 by mouth J2 Brandon Meza 09/17/2017 mg twice a 0. Linda, day x 5 9 M.D. days Neurontin 08/16/2013 - Hx Capsules 30 30caps 1 po qhs Irving 11/30/2016 0m holly Frias M.D. Atorvastatin Calcium - Hx Tablets 10 2 by mouth Unknown 04/14/2018 mg every three days Lantus - Hx Solution 10 70 units Unknown 08/18/2017 0U daily ni t/ ML Omeprazole - Hx Tablets DR 20 90tabs 1 by mouth Jing 09/13/2017 mg every day Irais Montiel Meclizine HCL - Hx Tablets 25 take one Unknown 08/12/2017 mg tablet by mouth twice a day as needed for vertigo Fluticasone - Hx Suspension 50 Instill 2 Wesley, Propionate 04/14/2018 mc Sprays holly Alvares/ Into Each MD Ac Nostril t Once Daily Nystatin-Triamcinolon Hx Cream 10 30gm apply to Jing e 00 both ear Cotton, 00 canals M.D. -0 twice a .1 day for 14 Un days it /G M- % Azithromycin Hx Tablets 25 take 2 Unknown 0m tablets by g mouth today then take 1 tablet Daily For 4 Days Medications Administered in Office Medication Date Status Form Strength Qnty SIG Indications Ordering Provider Depomedrol Administered Injection Melba 40MG Debra Workman M.D. Depomedrol Administered Injection Melba 40MG 019 Irais Workman Synvisc Or Administered Injection Melba Synvisc-One Rhett Workman M.D. Injection 1 MG Synvisc Or Administered Injection Melba Synvisc-One Rhett Workman M.D. Injection 1 MG Synvisc Or Administered Injection Natalie Synvisc-One Rhett Mckeon, Injection 1 MG RPA-C Synvisc Or Administered Injection Melba Synvisc-One Rhett Workman M.D. Injection 1 MG Synvisc Or Administered Injection Melba Synvisc-One Rhett Workman M.D. Injection 1 MG Synvisc Or Administered Injection Melba Synvisc-One Rhett Workman M.D. Injection 1 MG Synvisc Or Administered Injection Melba Synvisc-One Rhett Workman M.D. Injection 1 MG Depomedrol Administered Injection Melba 80MG 015 Irais Workman Depomedrol Administered Injection Irving 80MG Colton Frias M.D. Immunizations CPT Code Status Date Vaccine Lot # [id number] Given 05/25/2018 Influenza Virus Vaccine, Quadrivalent, Split, Preservative Free 02240 Given 05/24/2017 Influenza Virus Vaccine, Quadrivalent, Split, [id number] Preservative Free [id number] Given 05/24/2017 Pneumococcal Conjugate Vaccine 13 Valent For [id number] Intramuscular Use Vital Signs Date Vital Result Comment 08/25/2018 11:02am Height 64 inches 5'4" Weight 209.25 lb Heart Rate 65 /min BP Systolic 138 mmHg BP Diastolic 72 mmHg Body Temperature 98.0 F O2 % BldC Oximetry 92 % BMI (Body Mass Index) 35.9 kg/m2 08/05/2018 1:19pm Height 64 inches 5'4" Weight 210.00 lb BP Systolic 134 mmHg BP Diastolic 64 mmHg Body Temperature 98.1 F BMI (Body Mass Index) 36.0 kg/m2 08/04/2018 10:05am Height 64 inches 5'4" Weight 210.00 lb Heart Rate 76 /min BP Systolic Sitting 130 mmHg BP Diastolic Sitting 65 mmHg O2 % BldC Oximetry 95 % BMI (Body Mass Index) 36.0 kg/m2 04/26/2018 1:19pm Heart Rate 78 /min Respiratory Rate 18 /min Body Temperature 97.9 F 04/22/2018 2:25pm Heart Rate 78 /min Respiratory Rate 18 /min Body Temperature 99.5 F 04/18/2018 1:21pm Heart Rate 60 /min Respiratory Rate 18 /min Body Temperature 98.8 F 04/14/2018 11:40am Height 64 inches 5'4" Weight 206.00 lb Heart Rate 64 /min BP Systolic Sitting 136 mmHg BP Diastolic Sitting 61 mmHg O2 % BldC Oximetry 95 % BMI (Body Mass Index) 35.4 kg/m2 04/06/2018 1:16pm Height 64 inches 5'4" Weight 200.00 lb Heart Rate 74 /min BP Systolic 120 mmHg BP Diastolic 68 mmHg Respiratory Rate 18 /min Body Temperature 98.8 F BMI (Body Mass Index) 34.3 kg/m2 03/29/2018 10:27am Heart Rate 66 /min BP Systolic Sitting 126 mmHg BP Diastolic Sitting 78 mmHg Respiratory Rate 18 /min Body Temperature 97.4 F 03/10/2018 5:03pm Height 64 inches 5'4" Weight 209.00 lb Heart Rate 68 /min BP Systolic Sitting 138 mmHg BP Diastolic Sitting 64 mmHg O2 % BldC Oximetry 95 % BMI (Body Mass Index) 35.9 kg/m2 01/28/2018 1:20pm Height 64 inches 5'4" Weight 215.00 lb Heart Rate 72 /min BP Systolic Sitting 133 mmHg BP Diastolic Sitting 72 mmHg O2 % BldC Oximetry 93 % BMI (Body Mass Index) 36.9 kg/m2 09/17/2017 1:52pm Weight 211.12 lb Heart Rate 80 /min BP Systolic 124 mmHg BP Diastolic 78 mmHg Body Temperature 98.9 F O2 % BldC Oximetry 97 % 08/30/2017 11:37am Weight 211.00 lb Heart Rate 78 /min BP Systolic Sitting 130 mmHg BP Diastolic Sitting 70 mmHg Body Temperature 100.2 F O2 % BldC Oximetry 95 % 08/13/2017 8:29am Height 64 inches 5'4" Weight 218.75 lb Heart Rate 86 /min BP Systolic 124 mmHg BP Diastolic 62 mmHg O2 % BldC Oximetry 95 % BMI (Body Mass Index) 37.5 kg/m2 05/24/2017 8:34am Height 64 inches 5'4" Weight 220.75 lb Heart Rate 71 /min BP Systolic 124 mmHg BP Diastolic 60 mmHg Body Temperature 96.3 F O2 % BldC Oximetry 95 % after deep breath BMI (Body Mass Index) 37.9 kg/m2 01/25/2017 4:13pm Weight 219.00 lb with shoes Heart Rate 61 /min BP Systolic 134 mmHg BP Diastolic 74 mmHg O2 % BldC Oximetry 95 % 01/08/2017 7:58am Height 64 inches 5'4" Weight 222.00 lb Heart Rate 100 /min BP Systolic 153 mmHg BP Diastolic 79 mmHg Pain Level 3 BMI (Body Mass Index) 38.1 kg/m2 01/01/2017 7:59am Height 64 inches 5'4" Weight 222.00 lb Heart Rate 75 /min BP Systolic 144 mmHg BP Diastolic 66 mmHg Pain Level 4 BMI (Body Mass Index) 38.1 kg/m2 12/25/2016 8:01am Height 64 inches 5'4" Weight 222.00 lb BP Systolic 142 mmHg BP Diastolic 82 mmHg Respiratory Rate 15 /min Body Temperature 97.5 F Pain Level 5 BMI (Body Mass Index) 38.1 kg/m2 12/04/2016 10:13am Height 64 inches 5'4" Weight 222.00 lb Heart Rate 70 /min BP Systolic 146 mmHg BP Diastolic 67 mmHg Respiratory Rate 16 /min BMI (Body Mass Index) 38.1 kg/m2 01/23/2015 3:05pm Height 64 inches 5'4" Weight 220.00 lb Heart Rate 72 /min BP Systolic 152 mmHg BP Diastolic 81 mmHg Pain Level 5 BMI (Body Mass Index) 37.8 kg/m2 12/31/2014 1:18pm Height 64 inches 5'4" Weight 220.00 lb Heart Rate 72 /min BP Systolic 147 mmHg BP Diastolic 94 mmHg Pain Level 5 BMI (Body Mass Index) 37.8 kg/m2 10/04/2013 9:29am Heart Rate 78 /min BP Systolic 151 mmHg BP Diastolic 86 mmHg Results Test Date Facility Test Result H/L Range Note Lipid Profile 07/25/2018 [facility] Triglycerides 92 mg/dL 1, 2 (Trig/Chol/HDL) [address] [place] [address] [phone] Cholesterol 212 mg/dL 3 HDL Cholesterol 50.4 mg/dL 4 LDL Cholesterol 143 mg/dL 5 Comp Metabolic Panel 07/25/2018 [facility] Sodium 142 mmol/L N 135-[address] [place] [address] [phone] Potassium 3.9 mmol/L N 3.5-5.0 Chloride 107 mmol/L N 101-111 Co2 Carbon Dioxide 25 mmol/L N 22-32 Anion Gap 10 mmol/L N 2-11 Glucose 91 mg/dL N 70-100 Blood Urea Nitrogen 36 mg/dL High 6-24 Creatinine 1.52 mg/dL High 0.51-0.95 BUN/Creatinine Ratio 23.7 High 8-20 Calcium 10.0 mg/dL N 8.6-10.3 Total Protein 6.7 g/dL N 6.4-8.9 Albumin 4.2 g/dL N 3.2-5.2 Globulin 2.5 g/dL N 2-4 Albumin/Globulin Ratio 1.7 N 1-3 Total Bilirubin 0.40 mg/dL N 0.2-1.0 Alkaline Phosphatase 58 U/L N 34-104 Alt 18 U/L N 7-52 Ast 16 U/L N 13-39 Egfr Non- 32.6 >60 Egfr 39.4 >60 6 Laboratory test 07/25/2018 [facility] Hemoglobin A1c 6.8 % High 4.0-5.[address] (Glyco HGB) [place] [address] [phone] Urine 07/25/2018 [facility] Ur Microalbumin 28.[address] (mg/L) [place] [address] [phone] Urine Creatinine 158.99 mg/dL Urine Microalbumin/Creatinine 17.8 N <31 Laboratory test 07/25/2018 [facility] TSH (Thyroid 3.97 N 0.34 -5.60 [address] Stim Horm) mcIU/[place] [address] [phone] Laboratory test 04/15/2018 [facility] Point of 122 mg/dL High 70-100 [address] [place] [address] [phone] Laboratory test 04/15/2018 [facility] Point of 101 mg/dL High 70-100 [address] [place] [address] [phone] CBC Auto Diff 04/06/2018 [facility] White Blood 5.9 10^3/uL N 3.5-10.[address] [place] [address] [phone] Red Blood Count 4.32 10^6/uL N 4.00-5.40 Hemoglobin 12.7 g/dL N 12.0-16.0 Hematocrit 39 % N 35-47 Mean Corpuscular Volume 90 fL N 80-97 Mean Corpuscular Hemoglobin 30 pg N 27-31 Mean Corpuscular HGB Conc 33 g/dL N 31-36 Red Cell Distribution Width 16 % High 10.5-15 Platelet Count 179 10^3/uL N 150-450 Mean Platelet Volume 10.5 um3 High 7.4-10.4 Abs Neutrophils 3.3 10^3/uL N 1.5-7.7 Abs Lymphocytes 1.7 10^3/uL N 1.0-4.8 Abs Monocytes 0.5 10^3/uL N 0-0.8 Abs Eosinophils 0.3 10^3/uL N 0-0.6 Abs Basophils 0.1 10^3/uL N 0-0.2 Abs Nucleated RBC 0 10^3/uL Granulocyte % 55.9 % N 38-83 Lymphocyte % 28.5 % N 25-47 Monocyte % 9.1 % High 0-7 Eosinophil % 5.6 % N 0-6 Basophil % 0.9 % N 0-2 Nucleated Red Blood Cells % 0 Basic Metabolic Panel 04/06/2018 [facility] Sodium 143 mmol/L N 135-[address] [place] [address] [phone] Potassium 4.4 mmol/L N 3.5-5.0 Chloride 108 mmol/L N 101-111 Co2 Carbon Dioxide 25 mmol/L N 22-32 Anion Gap 10 mmol/L N 2-11 Glucose 105 mg/dL High 70-100 Blood Urea Nitrogen 33 mg/dL High 6-24 Creatinine 1.46 mg/dL High 0.51-0.95 BUN/Creatinine Ratio 22.6 High 8-20 Calcium 9.9 mg/dL N 8.6-10.3 Egfr Non- 34.2 >60 Egfr 41.4 >60 11 Laboratory 03/03/2018 [facility] Surgical SEE RESULT 12, 13 test finding [address] Pathology BELOW [place], [place] [address] [phone] Laboratory 01/28/2018 [facility] Hemoglobin A1c 6.9 5-7 test finding Laboratory 08/30/2017 [facility] Rapid SEE RESULT 14 test finding [address] [place] [address] Antigen [phone] Rapid 08/30/2017 [facility] Influenza A NEGATIVE Negative 15 Influenza A & [address] [place] [address] [phone] Influenza B Molecular POSITIVE Abnormal Negative Laboratory test 08/24/2017 [facility] Point of 110 mg/dL High 70-100 [address] [place] [address] [phone] Comp Metabolic 08/06/2017 [facility] Sodium 141 mmol/L N 133- [address] [place] [address] [phone] Potassium 3.7 mmol/L N 3.5-5.0 Chloride 107 mmol/L N 101-111 Co2 Carbon Dioxide 25 mmol/L N 22-32 Anion Gap 9 mmol/L N 2-11 Glucose 105 mg/dL High 70-100 Blood Urea Nitrogen 34 mg/dL High 6-24 Creatinine 1.54 mg/dL High 0.51-0.95 BUN/Creatinine Ratio 22.1 High 8-20 Calcium 10.0 mg/dL N 8.6-10.3 Total Protein 7.0 g/dL N 6.4-8.9 Albumin 4.1 g/dL N 3.2-5.2 Globulin 2.9 g/dL N 2-4 Albumin/Globulin Ratio 1.4 N 1-3 Total Bilirubin 0.40 mg/dL N 0.2-1.0 Alkaline Phosphatase 50 U/L N 34-104 Alt 17 U/L N 7-52 Ast 16 U/L N 13-39 Egfr Non- 32.2 >60 Egfr 41.4 >60 17 Lipid Profile 08/06/2017 [facility] Triglycerides 78 mg/dL 18 (Trig/Chol/HDL) [address] [place] [address] [phone] Cholesterol 151 mg/dL 19 HDL Cholesterol 44.5 mg/dL 20 LDL Cholesterol 91 mg/dL 21 Laboratory test 08/06/2017 [facility] Hemoglobin A1c 6.8 % High 4.0-5.6 [address] (Glyco HGB) [place] [address] [phone] Vitamin B12 424 pg/mL N 180-914 23 Laboratory test 03/04/2017 [facility] Hemoglobin A1c 6.9 % High Less than [address] (Glyco HGB) 6.0 [place] [address] [phone] TSH (Thyroid Stim Horm) 3.40 mcIU/mL N 0.34-5.60 25 Urine Microalbumin 03/04/2017 [facility] Ur Microalbumin < 15.0 N Random [address] (mg/L) mg/[place] [address] [phone] Urine Creatinine 139.36 mg/dL N Urine Microalbumin/Creatinine TNP ug/mg N <31 26 Comp Metabolic Panel 03/04/2017 [facility] Sodium 141 mmol/L N 133-[address] [place] [address] [phone] Potassium 4.2 mmol/L N 3.5-5.0 Chloride 104 mmol/L N 101-111 Co2 Carbon Dioxide 29 mmol/L N 22-32 Anion Gap 8 mmol/L N 2-11 Glucose 97 mg/dL N 70-100 Blood Urea Nitrogen 36 mg/dL High 6-24 Creatinine 1.50 mg/dL High 0.51-0.95 BUN/Creatinine Ratio 24.0 High 8-20 Calcium 9.8 mg/dL N 8.6-10.3 Total Protein 6.7 g/dL N 6.4-8.9 Albumin 4.0 g/dL N 3.2-5.2 Globulin 2.7 g/dL N 2-4 Albumin/Globulin Ratio 1.5 N 1-3 Total Bilirubin 0.50 mg/dL N 0.2-1.0 Alkaline Phosphatase 46 U/L N 34-104 Alt 24 U/L N 7-52 Ast 20 U/L N 13-39 Egfr Non- 33.2 N >60 Egfr 42.8 N >60 27 1 FASTING 10 HOUR 2 Desirable: <150 Borderline High: 150-199 High: 200-499 Very High: >500 3 Desirable: <200 Borderline High: 200-239 High: >239 4 Low: <40 Desirable: 40-60 High: >60 5 Desirable: <100 Near Optimal: 100-129 Borderline High: 130-159 High: 160-189 Very High: >189 6 Because ethnic data is not always readily available, this report includes an eGFR for both -Americans and non- Americans. The National Kidney Disease Education Program (NKDEP) does not endorse the use of the MDRD equation for patients that are not between the ages of 18 and 70, are , have extremes of body size, muscle mass, or nutritional status, or are non- or non-. According to the National Kidney Foundation, irrespective of diagnosis, the stage of the disease is based on the level of kidney function: Stage Description GFR(mL/min/1.73 m(2)) 1 Kidney damage with normal or decreased GFR 90 2 Kidney damage with mild decrease in GFR 60-89 3 Moderate decrease in GFR 30-59 4 Severe decrease in GFR 15-29 5 Kidney failure <15 (or dialysis) 7 Therapeutic target for the treatment of diabetes mellitus patients is <7% HBA1C, and in selective patients <6.0%. Please refer to [employer] diabetic care guidelines for further information. 8 FASTING 10 HOUR 9 Matrix Bath Attendant: [id number] Matrix Bath Attendant: [id number] 11 Because ethnic data is not always readily available, this report includes an eGFR for both -Americans and non- Americans. The National Kidney Disease Education Program (NKDEP) does not endorse the use of the MDRD equation for patients that are not between the ages of 18 and 70, are , have extremes of body size, muscle mass, or nutritional status, or are non- or non-. According to the National Kidney Foundation, irrespective of diagnosis, the stage of the disease is based on the level of kidney function: Stage Description GFR(mL/min/1.73 m(2)) 1 Kidney damage with normal or decreased GFR 90 2 Kidney damage with mild decrease in GFR 60-89 3 Moderate decrease in GFR 30-59 4 Severe decrease in GFR 15-29 5 Kidney failure <15 (or dialysis) 12 [id number] 13 SEE RESULT BELOW Name: HARLEEN STACK : [address]: Jing Montiel MD Acct: [id number] Unit: [id number] AGE: 82 Location: [facility] Re03/03/18 SEX: F Status: REG REF SPEC: [id number] MARTA: 03/03/18-1017 [facility] DR: Marko Espinal MD REQ: [id number] RECD: 03/03/18-1235 STATUS: ABHINAV STERLING DR: Jing Montiel MD _ ORDERED: LEVEL 4/2, IMMUNO-QUANT/6 COMMENTS: [id number] Addendum: The following histochemical stains are performed with appropriate controls on part 1 with results as follows ER positive, 2?3 plus, greater than 80% of tumor WI positive, 2?3 plus, 70% of tumor HER-2 negative (0+) The following histochemical stains were performed with appropriate controls on part 2 with results as follows ER positive, 3+, greater than 90% of tumor WI positive, 2?3 plus, greater than 80% of tumor HER-2 negative (1+) Addendum Signed (signature on file) Alexander Villarreal MD 1106 FINAL DIAGNOSIS 1. Breast, left, 1:00, 10 cm from nipple, core biopsy: -- Invasive ductal adenocarcinoma of breast, with: Size: 4 mm. Tumor extent and distribution: Involves multiple fragmented cores. Estimated Clark grade: Estimated tubule formation: 3. Estimated nuclear grade: 3. Estimated mitotic count: 1. Combined Clark histologic grade: 2/3. (7/9 points). Lymphovascular invasion: Not identified. Ductal Carcinoma in situ (DCIS): Not identified. ER, WI, and Her2/Malena by immunohistochemistry with appropriate controls: CONTINUED ON NEXT PAGE DEPARTMENT OF PATHOLOGY, [address] [place] [address] Alexander Villarreal M.D. Director [facility] # [id number] RUN DATE: 03/07/18 [facility] LAB LIVE PAGE 2 Patient: SEDADEEDEEHARLEEN M [id number] (Continued) FINAL DIAGNOSIS (Continued) ER: Pending; results will be reported in an addendum. WI: Pending; results will be reported in an addendum. Her2/Malena: Pending; results will be reported in an addendum. Microcalcifications: Not identified. Other findings: Necrosis. Predicted pTNM histopathologic stage: at least pT1a. 2. Breast, left, 1:00, 9 cm from nipple, core biopsy: -- Invasive ductal adenocarcinoma of breast, with: Size: 7 mm. Tumor extent and distribution: Involves central portions of 4 of 4 sampled cores. Estimated Umesh grade: Estimated tubule formation: 3. Estimated nuclear grade: 3. Estimated mitotic count: 1. Combined Umesh histologic grade: 2/3. (7/9 points). Lymphovascular invasion: Not identified. Ductal Carcinoma in situ (DCIS): Not identified. ER, WI, and Her2/Malena by immunohistochemistry with appropriate controls: ER: Pending; results will be reported in an addendum. WI: Pending; results will be reported in an addendum. Her2/Malena: Pending; results will be reported in an addendum. Microcalcifications: Not identified. Other findings: Micropapillary features. Predicted pTNM histopathologic stage: at least pT1b. COMMENT: Dr. Villarreal reviewed this case in intradepartmental consultation and agrees with the diagnosis. CLINICAL HISTORY 1) Complex cyst, likely benign, 2) solid nodule ? scar versus recurrent carcinoma CONTINUED ON NEXT PAGE DEPARTMENT OF PATHOLOGY, [address] [place] [address] Alexander Villarreal M.D. Director [facility] # [id number] RUN DATE: 03/07/18 [facility] LAB LIVE PAGE 3 Patient: HARLEEN STACK [id number] (Continued) PRE-OPERATIVE DIAGNOSIS (Continued) PRE-OPERATIVE DIAGNOSIS Left breast masses; 1) 1:00, 10 cm from nipple, 0.9 x 0.9 x 1.0 cm; cluster cysts, 2) 1:00, 9 cm from nipple, 1.4 x 0.6 x 0.9 cm GROSS DESCRIPTION 1. The specimen is received in formalin labeled, Left Breast Core Biopsies , and consists of three yellow-white fibrofatty soft tissue cores averaging 1.3 x 0.1 cm which are submitted entirely in one cassette. 2. The specimen is received in formalin labeled, Left Breast Core Biopsies , and consists of four yellow-white to focally red fibrofatty soft tissue cores averaging 1.8 x 0.1 cm which are submitted entirely in one cassette. Signed by and Reported on: Evie Negrete MD 03/04/18 0959 END OF REPORT DEPARTMENT OF PATHOLOGY, [address] [place] [address] Alexander Villarreal M.D. Director [facility] # [id number] 14 SEE RESULT BELOW Name: HARLEEN STACK Devante : [address]: Brandon Mckeon III, MD Acct: [id number] Unit: [id number] AGE: 82 Location: [facility] Re08/30/17 SEX: F Status: REG REF SPEC: [id number] MARTA: 08/30/17-1213 [facility] DR: Brandon Mckeon III, MD REQ: [id number] RECD: 08/30/17 STATUS: COMP _ [facility] ORDERED: Sofi Viera Request COMMENTS: [id number] Procedure Result Reported Site Rapid Influenza A B Request Final 08/30/171927 ML Specimen received for Influenza A/B Molecular testing * ML - MAIN LAB ([facility]) . END OF REPORT * ML=Testing performed at Main Lab DEPARTMENT OF PATHOLOGY, [address] [place] [address] Alexander Villarreal M.D. Director [facility] # [id number] 15 Matrix Bath Attendant: [id number] Matrix Bath Attendant: [id number] Because ethnic data is not always readily available, this report includes an eGFR for both -Americans and non- Americans. The National Kidney Disease Education Program (NKDEP) does not endorse the use of the MDRD equation for patients that are not between the ages of 18 and 70, are , have extremes of body size, muscle mass, or nutritional status, or are non- or non-. According to the National Kidney Foundation, irrespective of diagnosis, the stage of the disease is based on the level of kidney function: Stage Description GFR(mL/min/1.73 m(2)) 1 Kidney damage with normal or decreased GFR 90 2 Kidney damage with mild decrease in GFR 60-89 3 Moderate decrease in GFR 30-59 4 Severe decrease in GFR 15-29 5 Kidney failure <15 (or dialysis) 18 Desirable: <150 Borderline High: 150-199 High: 200-499 Very High: >500 19 Desirable: <200 Borderline High: 200-239 High: >239 20 Low: <40 Desirable: 40-60 High: >60 21 Desirable: <100 Near Optimal: 100-129 Borderline High: 130-159 High: 160-189 Very High: >189 22 Therapeutic target for the treatment of diabetes mellitus patients is <7% HBA1C, and in selective patients <6.0%. Please refer to [employer] diabetic care guidelines for further information. 23 Normal Range 180 to 914 Indeterminate Range 145 to 180 Deficient Range <145 24 Therapeutic target for the treatment of diabetes Mellitus patients is <7% HBA1C, and in selective patients <6.0%.Please refer to [employer] Diabetic care guidelines for further information. 25 FASTING 26 Unable to calculate due to low microalbumin 27 Because ethnic data is not always readily available, this report includes an eGFR for both -Americans and non- Americans. The National Kidney Disease Education Program (NKDEP) does not endorse the use of the MDRD equation for patients that are not between the ages of 18 and 70, are , have extremes of body size, muscle mass, or nutritional status, or are non- or non-. According to the National Kidney Foundation, irrespective of diagnosis, the stage of the disease is based on the level of kidney function: Stage Description GFR(mL/min/1.73 m(2)) 1 Kidney damage with normal or decreased GFR 90 2 Kidney damage with mild decrease in GFR 60-89 3 Moderate decrease in GFR 30-59 4 Severe decrease in GFR 15-29 5 Kidney failure <15 (or dialysis) Procedures Date Code Description Status 08/05/2018 Inject/Drain Joint/Bursa Major W/O US Completed 04/15/2018 25546 Mastectomy Simple Complete Completed 04/15/2018 23865 Mastectomy Simple Complete Completed 04/13/2018 25911 ECHO Stress Test Incl Perf Contiuous ekg Monitoring Completed W/Phys Superv 03/03/2018 [id number] Mammogram Completed 02/22/2018 [id number] Mammogram Completed 02/22/2018 [id number] Bone Mineral Density Test Completed 02/01/2018 03921 ECHO Transthoracic, Real-Time 2D With Doppler And Completed Color Flow 02/01/2018 38321 ECHO Transthoracic, Real-Time 2D With Doppler And Completed Color Flow 01/28/2018 49660 EKG Tracing & Interpretation Completed 08/27/2017 [id number] Diabetic Retinal Eye Exam Completed 08/24/2017 [id number] Colonoscopy Completed 01/08/201722580 Inject/Drain Joint/Bursa Major W/O US Completed 01/01/2017 Inject/Drain Joint/Bursa Major W/O US Completed 12/25/2016 Inject/Drain Joint/Bursa Major W/O US Completed 08/27/2016 [id number] Diabetic Retinal Eye Exam Completed 12/31/2014 Inject/Drain Joint/Bursa Major W/O US Completed 08/30/2012 [id number] Colonoscopy Completed 03/23/2012 07630 Rad Exam; Pelvis Completed 03/23/2012 08732 Rad Exam; Hip Unilat Completed 02/29/2012 43635 Arthroscopy,Knee,Meniscectomy Media & Lateral Completed 02/29/2012 17794 Arthroscopy,Knee,Meniscectomy Media & Lateral Completed 01/13/2012 66351 Xray Knee 3 Views Completed 01/13/201247875 Inject/Drain Joint/Bursa Major W/O US Completed 08/06/2009 [id number] Colonoscopy Completed 06/29/2006 [id number] Colonoscopy Completed 08/29/2002 [id number] Colonoscopy Completed 04/19/2001 [id number] Colonoscopy Completed Encounters Type Date Location Provider Dx Diagnosis Office Visit 08/05/2018 Orthopedic Melba Workman, M25.562 Pain in left knee 1:15p Services [facility] Narendra Braxton M25.561 Pain in right knee M25.462 Effusion, left knee M25.461 Effusion, right knee M17.0 Bilateral primary osteoarthritis of knee M25.552 Pain in left hip M16.12 Unilateral primary osteoarthritis, left hip Office Visit 08/04/2018 10:00a [facility] E11.22 Type 2 diabetes Poncho Montiel M.D. mellitus w [place] diabetic chronic kidney disease I10 Essential (primary) hypertension E78.5 Hyperlipidemia, unspecified M25.552 Pain in left hip Office Visit 04/15/2018 10:28a [facility] R06.02 Shortness of Assoc,pc Olga Lidia, [employer] OFFICER breath Hospitalists E11.22 Type 2 diabetes mellitus w diabetic chronic kidney disease N18.9 Chronic kidney disease, unspecified Office Visit 04/14/2018 [facility] Z01.818 Encounter for other 11:40a Poncho Montiel M.D. preprocedural [place] examination C50.912 Malignant neoplasm of unspecified site of left female breast I10 Essential (primary) hypertension E11.9 Type 2 diabetes mellitus without complications Office Visit 03/29/2018 Surgical Tasha Dave C50.912 Malignant 10:30a [facility] neoplasm of [facility] unspecified site of left female breast Office Visit 03/10/2018 [facility] Jing C50.112 Malignant 5:00p Poncho Montiel M.D. neoplasm of [place] central portion of left female breast Office Visit 01/28/2018 [facility] Z00.00 Encntr for 2:00p Poncho Montiel M.D. 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 unspecified [place] R91.1 Solitary pulmonary nodule Office Visit 08/30/2017 11:40a [facility] Internal Brandon Meza J20.9 Acute bronchitis, Poncho Mckeon M.D. unspecified [place] Office Visit 08/13/2017 8:40a [facility]ing E11.9 Type 2 diabetes Poncho Montiel M.D. mellitus without [place] complications I10 Essential (primary) hypertension E78.5 Hyperlipidemia, unspecified M25.552 Pain in left hip M54.9 Dorsalgia, unspecified H81.319 Aural vertigo, unspecified ear Office Visit 05/24/2017 8:40a [facility] Jing E11.9 Type 2 diabetes Poncho Montiel M.D. 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 M.D. hip M16.12 Unilateral primary osteoarthritis, left hip M25.561 Pain in right knee M25.562 Pain in left knee M25.462 Effusion, left knee M25.461 Effusion, right knee M17.0 Bilateral primary osteoarthritis of knee Office Visit 01/23/2015 2:30p Orthopedic Melba 715.95 Osteoarthrosis Services Of Irais Workman Unspec Genlzd Or C.M.A. Localized Pelvic & Thigh 719.45 Pain Joint Pelvic Region & Thigh Office Visit 12/31/2014 1:10p Orthopedic Melba 715.16 Osteoarthrosis [facility] Ira[facility] Workman Localized Prim Lower C.M.A. Leg 719.06 Effusion Joint Lower Leg Office Visit 10/04/2013 Orthopedic Bruce Jacques 726.61 Bursitis Tendinitis 9:30a Services Of Jeancarlos Pes Anserinus C.M.A. R.P.A.-C Office Visit 08/16/2013 Orthopedic Irving Frias, 726.61 Bursitis Tendinitis 2:45p [facility] Irais Pes Anserinus C.M.A. Office Visit 03/23/2012 Orthopedic Irving Frias, 715.95 Osteoarthrosis 10:00a Services Of Irais Unspec Genlzd Or C.M.A. Localized Pelvic & Thigh Office Visit 02/17/2012 Orthopedic Irving Frias, 836.0 Dislocation Knee 8:15a [facility] Tear Of Medial C.M.A. Cartilage Or Meniscus Curren Office Visit 01/13/2012 Orthopedic Irving Frias, 836.0 Dislocation Knee 2:00p [facility] Tear Of Medial C.M.A. 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 8:30 am - Melba Workman M.D. at [facility].02/17/2019 1:20 pm - Jing Montiel M.D. at [facility] [place]/04/2019 7:40 am - Jing Montiel M.D. at [facility]08/25/2018 - Marco Appiah, NPZ01.818 Encounter for other preprocedural examinationNew Orders:EKG, Ordered: 08/25/18M25.552 Pain in left hipE11.22 Type 2 diabetes mellitus with diabetic chronic kidney diseasComments:Take 40 units of Lantus the day prior to surgery. Do not take this the morning of surgery.I10 Essential (primary) qjrhhivuqxoiG31.912 Malignant neoplasm of unspecified site of left female rnkdxwO15.9 Chronic kidney disease, unspecified
--- OUTSIDE RECORDS SUMMARY | 2018-09-06 09:39 | XMS REPORT | Continuity of Care Document ---
:1935 External Reference #:[id number] Author Name Monique Hugo Care Team Providers Name Role Phone Jing Montiel MD Primary Care Physician Unavailable Payers Type Date Identification Numbers Payment Provider Subscriber Policy Number: [id number] Medicare Harleen Stack PayID: [id number] [address] [place] [address] Effective: 1999 Policy Number: [id number] Medicare Harleen Stack Expires: 2018 PayID: [id number] [address] [place] [address] Policy Number: [id number] [facility] Harleen Stack PayID: [id number] [address] [place] [address] Advance Directives Description No Information Available Problems [...] Unknown Marital Status Lives With 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, sons do the work ETOH Use Denies alcohol use Tobacco Use Start: Unknown Patient has never smoked Smoking Status Reviewed: 08/29/18 Patient has never smoked Exercise Type/Frequency Does not exercise Allergies, Adverse Reactions, Alerts Date Description Reaction Status Severity Comments 10/04/2013 Penicillin Active 07/13/2017 Diptheria Protein fever 101 and arm swelling Active 08/29/2018 Bhupinder Inhibitors Active 08/29/2018 Amoxicillin Active 08/29/2018 Codeine Active 08/29/2018 Tramadol Active Medications Medication Date Status Form Strength Qnty SIG Indications Ordering Provider Atorvastatin Active Tablets 10mg 90tabs 1 PO qd E78.5 Jing Calcium 019 Irais Montiel Accu-Chek Mallory Active Device 1units for use E11.22 Jing 019 twice Irais Montiel daily Z79.4 Accu-Check Mallory 08/04/2018 Active 100units For use bid E11.22 Jing Dinesh Test Strips Irais Z79.4 Accucheck Mallory 08/04/2018 Active 100units for use E11.22 Jing Microlancets twice a day Irais Montiel Z79.4 [id number] BD Uf Pen 07/14/2018 Active 270units Use as Jing Needle Directed 3 Cotton, Times A M.D. Day Omeprazole 09/13/[address] 20 90caps 1 by mouth Jing mg every day Dinesh, as needed Irais Lantus Solostar 08/18/2017 Active Solution 10 90ml inject 55 Jing Pen-Inject 0U units in Cotton, ni the M.D. t/ morning ML Allopurinol Active Tablets 10 1 by mouth Marck, 0m every day MD holly Beaver Atenolol Active Tablets 25 90tabs 1 by mouth Jing mg every day Irais Montiel Hydrochlorothiazide Active Tablets 12 90tabs 1 by mouth Jing .5 every day Cottonmg M.DCindy Levothyroxine Sodium Active Tablets 12 90tabs 1 by mouth Jing 5m every day Dinesh cg M.DCindy Losartan Potassium Active Tablets 50 90tabs 1 [...] Suspension 50 Instill 2 Wesley, Propionate 04/14/2018 [place]/ Neptali Dean MD Ac Nostril t Once Daily Nystatin-Triamcinolon [...] Workman M.D. Depomedrol Administered Injection Melba 40MG Debra Workman M.D. Synvisc Or Administered Injection Melba Synvisc-One Rhett [...] 1 MG Depomedrol Administered Injection Melba 80MG Ruben Workman M.D. Depomedrol Administered Injection Irving 80MG Colton Frias M.D. Immunizations CPT Code Status Date Vaccine Lot # 54442 Given 05/25/2018 Influenza Virus Vaccine, Quadrivalent, Split, Preservative Free 39539 Given 05/24/2017 Influenza Virus Vaccine, Quadrivalent, Split, [id number] Preservative Free 89218 Given 05/24/2017 Pneumococcal Conjugate Vaccine 13 Valent For [id number] Intramuscular Use Vital Signs Date Vital Result Comment 08/29/2018 8:38am Height 64 inches 5'4" Weight 208.00 lb Heart Rate 74 /min BP Systolic 136 mmHg BP Diastolic 68 mmHg Respiratory Rate 16 /min Body Temperature 97.9 F Pain Level 8 BMI (Body Mass Index) 35.7 kg/m2 08/25/2018 11:02am Height 64 inches 5'4" Weight [...] Result H/L Range Note Lipid Profile 07/25/2018 [facility] Triglycerides 92 mg/dL 1, 2 (Trig/Chol/HDL) [address] [place] [address] [phone] Cholesterol 212 mg/dL 3 HDL Cholesterol 50.4 mg/dL 4 LDL Cholesterol 143 mg/dL 5 Comp Metabolic Panel 07/25/2018 [facility] Sodium 142 mmol/L N 135-[address] [place] [address] [phone] Potassium 3.9 mmol/L N 3.5-5.0 Chloride 107 [...] Egfr 39.4 >60 6 Laboratory test 07/25/2018 [facility] Hemoglobin A1c 6.8 % High 4.0-5.[address] (Glyco HGB) [place] [address] [phone] Urine 07/25/2018 [facility] Ur Microalbumin 28.[address] (mg/L) [place] [address] [phone] Urine Creatinine 158.99 mg/dL Urine Microalbumin/Creatinine 17.8 N <31 Laboratory test 07/25/2018 [facility] TSH (Thyroid 3.97 N 0.34 -5.60 [address] Stim Horm) mcIU/[place] [address] [phone] Laboratory test 04/15/2018 [facility] Point of 122 mg/dL High 70-100 [address] [place] [address] [phone] Laboratory test 04/15/2018 [facility] Point of 101 mg/dL High 70-100 [address] [place] [address] [phone] CBC Auto Diff 04/06/2018 [facility] White Blood 5.9 10^3/uL N 3.5-10.[address] [place] [address] [phone] Red Blood Count 4.32 10^6/uL N 4.00-5.40 [...] Cells % 0 Basic Metabolic Panel 04/06/2018 [facility] Sodium 143 mmol/L N 135-[address] [place] [address] [phone] Potassium 4.4 mmol/L N 3.5-5.0 Chloride 108 mmol/L N 101-111 Co2 Carbon Dioxide 25 mmol/L N 22-32 Anion Gap 10 mmol/L N 2-11 Glucose 105 mg/dL High 70-100 Blood Urea Nitrogen 33 mg/dL High 6-24 Creatinine 1.46 mg/dL High 0.51-0.95 BUN/Creatinine Ratio 22.6 High 8-20 Calcium 9.9 mg/dL N 8.6-10.3 Egfr Non- 34.2 >60 Egfr 41.4 >60 11 Laboratory 03/03/2018 [facility] Surgical SEE RESULT 12, 13 test finding [address] [place] [address] [phone] Laboratory 01/28/2018 [facility] [employer] [facility] Hemoglobin A1c 6.9 5-7 test finding Laboratory 08/30/2017 [facility] Rapid SEE RESULT [address] [place] [address] Antigen [phone] Rapid 08/30/2017 [facility] Influenza A NEGATIVE Negative 15 Influenza A & [address] [place] [address] [phone] Influenza B Molecular POSITIVE Abnormal Negative Laboratory test 08/24/2017 [facility] Point of 110 mg/dL High 70-100 [address] Care Glucose [place], [place] [id number] [phone] Comp Metabolic 08/06/2017 [facility] Sodium 141 mmol/L N 133- [address] [place] [address] [phone] Potassium 3.7 mmol/L N 3.5-5.0 Chloride 107 [...] Egfr 41.4 >60 17 Lipid Profile 08/06/2017 [facility] Triglycerides 78 mg/dL 18 (Trig/Chol/HDL) [address] [place] [address] [phone] Cholesterol 151 mg/dL 19 HDL Cholesterol 44.5 mg/dL 20 LDL Cholesterol 91 mg/dL 21 Laboratory test 08/06/2017 [facility] Hemoglobin A1c 6.8 % High 4.0-5.6 22 finding 101 (Glyco HGB) [place] [address] [phone] Vitamin B12 424 pg/mL N 180-914 23 Laboratory test 03/04/2017 [facility] Hemoglobin A1c 6.9 % High Less than 24 finding 101 (Glyco HGB) 6.0 [place] [address] [phone] TSH (Thyroid Stim Horm) 3.40 mcIU/mL N 0.34-5.60 25 Urine Microalbumin 03/04/2017 [facility] Ur Microalbumin < 15.0 N Random 101 (mg/L) mg/[place] [address] [phone] Urine Creatinine 139.36 mg/dL N Urine Microalbumin/Creatinine TNP ug/mg N <31 26 Comp Metabolic Panel 03/04/2017 [facility] Sodium 141 mmol/L N 133-[address] [place] [address] [phone] Potassium 4.2 mmol/L N 3.5-5.0 Chloride 104 [...] in selective patients <6.0%. Please refer to [place] Diabetes Association diabetic care guidelines for further information. 8 FASTING 10 HOUR 9 Cold Food Packer: [id number] 10 Cold Food Packer: [id number] 11 Because ethnic data is not always [...] 5 Kidney failure <15 (or dialysis) 12 [id number] 13 SEE RESULT BELOW Name: HARLEEN STACK : [address]: Jing Montiel MD Acct: [id number] Unit: [id number] AGE: 82 Location: [facility] Re03/03/18 SEX: F Status: REG REF SPEC: [id number] MARTA: 03/03/18-[address]: Marko Espinal MD REQ: [id number] RECD: 03/03/18-1237 STATUS: ABHINAV STERLING DR: Jing Montiel MD _ ORDERED: LEVEL 4/2, IMMUNO-QUANT/6 COMMENTS: [id number] Addendum: The following histochemical stains are performed with appropriate controls on part 1 with results as follows ER positive, 2?3 plus, greater than 80% of tumor VT positive, 2?3 plus, 70% of tumor HER-2 negative (0+) The following histochemical stains were performed with appropriate controls on part 2 with results as follows ER positive, 3+, greater than 90% of tumor VT positive, 2?3 plus, greater than 80% of tumor HER-2 negative (1+) Addendum Signed (signature on file) Alexander Villarreal MD 1106 FINAL DIAGNOSIS 1. Breast, left, 1:00, 10 cm from nipple, core biopsy: -- Invasive ductal adenocarcinoma of breast, with: Size: 4 mm. Tumor extent and distribution: Involves multiple fragmented cores. Estimated Umesh grade: Estimated tubule formation: 3. Estimated nuclear grade: 3. Estimated mitotic count: 1. Combined [place] histologic grade: 2/3. (7/9 points). Lymphovascular invasion: Not identified. Ductal Carcinoma in situ (DCIS): Not identified. ER, VT, and Her2/Malena by immunohistochemistry with appropriate controls: CONTINUED ON NEXT PAGE DEPARTMENT OF PATHOLOGY, [address] [place] [address] Alexander Villarreal M.D. Director [facility] # [id number] RUN DATE: 03/07/18 [facility] LAB LIVE PAGE 2 Patient: HARLEEN STACK [id number] (Continued) FINAL DIAGNOSIS (Continued) ER: Pending; results will be reported in an addendum. VT: Pending; results will be reported in an [...] of 4 of 4 sampled cores. Estimated [place] grade: Estimated tubule formation: 3. Estimated nuclear grade: 3. Estimated mitotic count: 1. Combined Umesh histologic grade: 2/3. (7/9 points). Lymphovascular invasion: Not identified. Ductal Carcinoma in situ (DCIS): Not identified. ER, VT, and Her2/Malena by immunohistochemistry with appropriate controls: ER: Pending; results will be reported in an addendum. VT: Pending; results will be reported in an [...] CONTINUED ON NEXT PAGE DEPARTMENT OF PATHOLOGY, [address] [place] [address] Alexander Villarreal M.D. Director [facility] # [id number] RUN DATE: 03/07/18 [facility] LAB LIVE PAGE 3 Patient: HARLEEN STACK [id number] (Continued) PRE-OPERATIVE DIAGNOSIS (Continued) PRE-OPERATIVE DIAGNOSIS Left [...] 0959 END OF REPORT DEPARTMENT OF PATHOLOGY, [address] [place] [address] Alexander Villarreal M.D. Director [facility] # [id number] 14 SEE RESULT BELOW Name: HARLEEN STACK : [address]: Brandon Mckeon III, MD Acct: [id number] Unit: [id number] AGE: 82 Location: [facility] Re08/30/17 SEX: F Status: REG REF SPEC: [id number] MARTA: 08/30/17-[address]: Brandon Mckeon III, MD REQ: [id number] RECD: 08/30/17 STATUS: COMP _ SOURCE: [facility]: ORDERED: Sofi Viera Request COMMENTS: [id number] Procedure Result Reported Site Rapid Influenza A B Request Final 08/30/17- 192 ML Specimen received for Influenza A/B Molecular testing * ML - MAIN LAB ([facility]) . END OF REPORT * ML=Testing performed at Main Lab DEPARTMENT OF PATHOLOGY, [address] [place] [address] Alexander Villarreal M.D. Director [facility] # [id number] 15 Cold Food Packer: [id number] 16 Cold Food Packer: [id number] 17 Because ethnic data is not always [...] in selective patients <6.0%. Please refer to [place] Diabetes Association diabetic care guidelines for further information. 23 Normal Range 180 to 914 Indeterminate Range 145 to 180 Deficient Range <145 24 Therapeutic target for the treatment of diabetes Mellitus patients is <7% HBA1C, and in selective patients <6.0%.Please refer to [place] Diabetes Association Diabetic care guidelines for further [...] (or dialysis) Procedures Date Code Description Status 08/26/2018 149760190 Diabetic Retinal Eye Exam Completed 08/05/2018 55106 Inject/Drain Joint/Bursa Major W/O US Completed 04/15/2018 89486 Mastectomy Simple Complete Completed 04/15/2018 80882 Mastectomy Simple Complete Completed 04/13/2018 54141 ECHO Stress Test Incl Perf Contiuous ekg Monitoring Completed W/Phys Superv 03/03/2018 [id number] Mammogram Completed 02/22/2018 [id number] Mammogram Completed 02/22/2018 [id number] Bone Mineral Density Test Completed 02/01/2018 15435 ECHO Transthoracic, Real-Time 2D With Doppler And Completed Color Flow 02/01/2018 82697 ECHO Transthoracic, Real-Time 2D With Doppler And Completed Color Flow 01/28/2018 63457 EKG Tracing & Interpretation Completed 08/27/2017 [id number] Diabetic Retinal Eye Exam Completed 08/24/2017 [id number] Colonoscopy Completed 01/08/2017 48900 Inject/Drain Joint/Bursa Major W/O US Completed 01/01/201754474 Inject/Drain Joint/Bursa Major W/O US Completed 12/25/2016 54322 Inject/Drain Joint/Bursa Major W/O US Completed 08/27/2016 406690673 Diabetic Retinal Eye Exam Completed 12/31/201469888 Inject/Drain Joint/Bursa Major W/O US Completed 08/30/2012 [id number] Colonoscopy Completed 03/23/2012 38505 Rad Exam; Pelvis Completed 03/23/2012 00805 Rad Exam; Hip Unilat Completed 02/29/2012 93318 Arthroscopy,Knee,Meniscectomy Media & Lateral Completed 02/29/2012 11206 Arthroscopy,Knee,Meniscectomy Media & Lateral Completed 01/13/2012 52574 Inject/Drain Joint/Bursa Major W/O US Completed 01/13/2012 50592 Xray Knee 3 Views Completed 08/06/2009 72186125 Colonoscopy Completed 06/29/2006 72151898 Colonoscopy Completed 08/29/2002 24486181 Colonoscopy Completed 04/19/2001 05676808 Colonoscopy Completed Encounters Type Date Location Provider Dx Diagnosis Office Visit 08/05/2018 [facility] Melba Workman, M25.562 Pain in left knee 1:15p [facility] M25.561 Pain in right knee M25.462 Effusion, left knee M25.461 Effusion, right knee M17.0 Bilateral primary osteoarthritis of knee M25.552 Pain in left hip M16.12 Unilateral primary osteoarthritis, left hip Office Visit 08/04/2018 10:00a [facility] Jing E11.22 Type 2 diabetes Medicine - Irais Montiel mellitus w Isma diabetic chronic kidney disease I10 Essential (primary) hypertension E78.5 Hyperlipidemia, unspecified M25.552 Pain in left hip Office Visit 04/15/2018 10:28a [facility] R06.02 Shortness of Assoc,izzy Duggan, HAIR WEAVER breath Hospitalists E11.22 Type 2 diabetes mellitus w diabetic chronic kidney disease N18.9 Chronic kidney disease, unspecified Office Visit 04/14/2018 [facility] Jing Z01.818 Encounter for other 11:40a Poncho Montiel M.D. preprocedural [place] examination C50.912 Malignant neoplasm of unspecified site of left female breast I10 Essential (primary) hypertension E11.9 Type 2 diabetes mellitus without complications Office Visit 03/29/2018 Surgical Tasha Dave C50.912 Malignant 10:30a [facility] neoplasm of [facility] unspecified site of left female breast Office Visit 03/10/2018 [facility] Jing C50.112 Malignant 5:00p Poncho Montiel M.D. neoplasm of [place] central portion of left female breast Office Visit 01/28/2018 [facility] Jing Z00.00 Encntr for 2:00p Poncho Montiel M.D. 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 unspecified [place] R91.1 Solitary pulmonary nodule Office Visit 08/30/2017 11:40a [facility] Brandon Meza J20.9 Acute bronchitis, Poncho Mckeon M.D. unspecified [place] Office Visit 08/13/2017 8:40a [facility] Jing E11.9 Type 2 diabetes Poncho Montiel M.D. mellitus without [place] complications I10 Essential (primary) hypertension E78.5 Hyperlipidemia, unspecified M25.552 Pain in left hip M54.9 Dorsalgia, unspecified H81.319 Aural vertigo, unspecified ear Office Visit 05/24/2017 8:40a [facility] Jing E11.9 Type 2 diabetes Poncho Montiel M.D. mellitus without [place] complications I10 Essential (primary) hypertension R10.13 Epigastric pain Z23 Encounter for immunization Z79.4 retirement (current) use of insulin Office Visit 01/25/2017 4:00p [facility] Jing E11.9 Type 2 diabetes Poncho Montiel M.D. mellitus without [place] complications N18.3 Chronic kidney disease, stage 3 (moderate) I10 Essential (primary) hypertension E03.9 Hypothyroidism, unspecified K21.9 Gastro-esophageal reflux disease without esophagitis E11.22 Type 2 diabetes mellitus w diabetic chronic kidney disease I12.9 Hypertensive chronic kidney disease w stg 1-4/unsp [facility] Office Visit 12/04/2016 10:45a [facility] [...] Jacques 726.61 Bursitis Tendinitis 9:30a [facility] Arshad Ansdiana C.M.ACindy GoodP.A.-C Office Visit 08/16/2013 [facility]opedic Irving Frias, 726.61 Bursitis Tendinitis 2:45p [facility] Irais Jean Anserinus C.M.A. Office Visit 03/23/2012 [facility] Irving Frias, 715.95 Osteoarthrosis 10:00a [facility] Irais Hauser Genlzd Or C.M.A. Localized Pelvic & Thigh [...] Myelopathy 724.3 Sciatica Plan of Treatment Future Appointment(s):09/21/2018 8:30 am - Melba Workman M.D. at [facility]09/06/2018 1:30 pm - Castro Bradley PA-C at [facility]09/06/2018 1:30 pm - SUZE Wolf at [facility]09/06/2018 1:30 pm - Melba Workman M.D. at [facility]02/17/2019 1:20 pm - Jing Montiel M.D. at [facility]11/03/2018 7:40 am - Jing Montiel M.D. at [facility]08/29/2018 - Melba Workman M.D.M25.552 Pain in left hipFollow up:Follow up: 2 weeks after yncqdwkC73.12 Unilateral primary osteoarthritis, left hip
[2018-09-06] MEDS ORDERED: Clindamycin 900 MG/D5W BAG(*) 900 MG/50 ML BAG IVPB ONE (10:14)
[2018-09-06] MEDS ORDERED: Midazolam* 1 MG/ML 5 ML VIAL (5 MG) ONE (13:12)
[2018-09-06] MEDS ORDERED: Bupivacaine-MPF SPINAL* 7.5 MG/ML - 2ML AMP ONE (13:56)
[2018-09-06] MEDS ORDERED: Midazolam* 1 MG/ML 2 ML VIAL (2 MG) ONE (15:06)
[2018-09-06] MEDS ORDERED: Ondansetron INJ* 2 MG/ML VIAL ONE (15:58)
[2018-09-06] MEDS ORDERED: Nalbuphine* 10 MG/ML 1 ML VIAL IV PRN (16:02)
[2018-09-06] MEDS ORDERED: fentaNYL* 50 MCG/ML 2 ML VIAL (100 MCG VIAL) IV PRN (16:02)
[2018-09-06] MEDS ORDERED: HYDROmorphone INJ1* 1 MG/ML SYRINGE IV PRN (16:02)
[2018-09-06] MEDS ORDERED: Naloxone* 0.4 MG/ML 1 ML VIAL IV PRN (16:02)
[2018-09-06] MEDS ORDERED: Acetaminophen IV 1GM/100ML * 1,000 MG/100 ML VIAL IVPB ONE (16:02)
[2018-09-06] MEDS ORDERED: Ondansetron INJ* 2 MG/ML VIAL IV PRN (16:02)
[2018-09-06] MEDS ORDERED: DiMENhydriNATE IV* 50 MG/ML VIAL IV PUSH PRN (16:02)
[2018-09-06] MEDS ORDERED: diPHENhydraMINE IV* 50 MG/ML 1 ml VIAL (BENADRYL) IV PRN (16:27)
[2018-09-06] MEDS ORDERED: traMADol TAB* 50 MG PO PRN (16:27)
[2018-09-06] MEDS ORDERED: oxyCODONE/Acetamin 5/325 MG* TAB PO PRN ×2 (16:27)
[2018-09-06] MEDS ORDERED: Bisacodyl SUPP* 10 MG SUPP PR PRN (16:27)
[2018-09-06] MEDS ORDERED: Magnesium Hydroxide LIQ* 30 ML UDC PO PRN (16:27)
[2018-09-06] MEDS ORDERED: oxyCODONE TAB* 5 MG TAB PO PRN (16:27)
[2018-09-06] MEDS ORDERED: Cyclobenzaprine TAB* 10 MG PO PRN (16:27)
[2018-09-06] MEDS ORDERED: Acetaminophen IV 1GM/100ML * 100 ML ONE (16:42)
[2018-09-06] MEDS ORDERED: DiMENhydriNATE IV* 50 MG/ML VIAL ONE (17:15)
[2018-09-06] MEDS: Lactated Ringers 1000 ML Bag* 1,000 ML IV SCH (18:11)
[2018-09-06] MEDS ORDERED: Warfarin TAB(*) 6 MG PO ONE (18:45)
[2018-09-06] MEDS: Morphine INJ* 2 MG/ML 1 ML SYRINGE (TWO MG - NEW SYRINGE VERSION) IV PRN ×2 (19:29→22:15)
[2018-09-06] MEDS: Magnesium Hydroxide LIQ* 30 ML UDC PO SCH (22:14)
[2018-09-06] MEDS: Docusate CAP* 100 MG PO SCH (22:14)
[2018-09-06] MEDS: Clindamycin 600 MG IVPREMIX(* 600 MG/50 ML SDV IV SCH (22:15)
[2018-09-06] MEDS ORDERED: Pantoprazole TAB * 40 MG TAB PO PRN (22:54)
[2018-09-06] MEDS ORDERED: Dextrose 50% Syringe 50 ML* 25 GM/50 ML SYRINGE IV PUSH PRN (22:54)
--- NOTE | 2018-09-07 00:55 | OP ---
DATE OF OPERATION: 09/06/18 - ROOM #337 DATE OF : 33 SURGEON: Melba Workman MD [facility] GUIDE: SUZE Meyers ANESTHESIOLOGIST: Dr. Edward. ANESTHESIA: Spinal. PRE-OP DIAGNOSIS: Severe end-stage osteoarthritis of the left hip joint. 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 OPERATIVE PROCEDURE: Left total hip arthroplasty. COMPLICATIONS: None. ESTIMATED BLOOD LOSS: 250 mL. SPECIMENS: Femoral head and acetabular reaming sent to Pathology. HARDWARE USED: This is uncemented Nelson total hip arthroplasty hardware. For the cup a 52D Tritanium cluster hole shell, one 60-mm shell was used for the polyethylene. A trident X3 0-degree polyethylene insert 36D. For the stem , an Accolade 2 size 4 with a 127-degree neck angle and for the head a ceramic Biolox delta 36 -3.5 V40 femoral head. BRIEF HISTORY/INDICATIONS: Ms. Stack is an 83-year-old female with years of increasingly severe left hip pain. Radiographs showed qium-[id number] arthritis. She failed conservative treatment with anti-inflammatories, pain medication, intraarticular injection and physical therapy. Due to continued pain and decreased quality of life, she elected to undergo left total hip arthroplasty. Informed consent was obtained from the patient. She understood the risks of surgery included but were not limited to bleeding, infection, damage to nearby structures, continued pain, need for further surgery, intraoperative fracture, nerve palsy, hardware failure or loosening, dislocation, leg length discrepancy , stroke, heart attack, blood clot, and . She wished to proceed. INTRAOPERATIVE FINDINGS: Intraoperatively, the patient was noted to have severe end-stage arthritis with complete loss of cartilage in the femoral head neck and acetabulum. She had a dysplastic acetabulum, which was shallow with minimal posterior wall. DESCRIPTION OF PROCEDURE: Ms. Stakc was identified in the preanesthesia unit. Her left lower extremity was marked as the correct operative side. Informed consent was signed and placed in the chart. The patient was taken to the operating room and placed under spinal anesthesia. A Hutson catheter was placed. She was placed in the right lateral decubitus position on the pegboard all bony prominences were well padded. Left lower extremity was prepped and draped in the usual sterile fashion. Preop time-out was made to correctly identify the patient's side and site. Appropriate perioperative antibiotics were given within 1 hour of incision. A posterior hip incision was made and electrocautery was used to dissect down to the lateral fascial layer. Lateral fascial layer was incised in line with the skin incision. A Charnley retractor was placed. The piriformis and conjoint tendons were identified and elevated off the posterolateral femur using electrocautery. These were tagged with #5 Ethibond. Next, a standard posterolateral capsular flap was made with electrocautery and also tagged with # 5 Ethibond. The hip was carefully dislocated. Lesser troch to center of the femoral head measured 55 mm. Oscillating saw was used to make the appropriate femoral neck cut. The femoral head was carefully removed. The femur was retracted anteriorly. After appropriate placement of retractors, the acetabulum was easily visualized. A long-handled knife was used to sharply remove any remaining labrum from the acetabular rim. The acetabulum was sequentially reamed up to a size 51. A 51 reamer had good fit with established subchondral bleeding bone bed. A 51 trial was placed and had good stability. Final implant chosen was a Tritanium cluster hole shell 52D. This was impacted into the acetabulum without difficulty. The shell was extremely stable. A single screw was placed in the superior posterior quadrant for extra stability. Polyethylene chosen was a Trident X3 0- degree 36D polyethylene insert. This liner was impacted into the acetabulum without difficulty. Stability of the insert was checked and rechecked and noted to be stable. Next, attention was turned to preparation of the femur. A canal finder was used to enter the proximal femur. The femur was sequentially broached up to a size 4. Size 4 broach had excellent fit with appropriate anteversion. A 127 neck trial with a 36 +0 head trial was chosen. Lesser troch to center of the femoral head measured 60 mm, therefore a -2.5 head was chosen. Lesser troch to center of femoral head measured 58 mm. The hip was reduced and taken through a range of motion. The hip was stable in all positions. There was good soft tissue tension and appropriate leg lengths. Next, the hip was carefully dislocated. All trials were removed. Final implant chosen was an Accolade 2 size 4 with a 127-degree neck angle. This was impacted into the femoral canal without difficulty. The stem was stable with appropriate anteversion. A 36 -2.5 ceramic Biolox delta V40 femoral head was chosen as the final implant. This was impacted onto the femoral neck. The hip was reduced and taken through range of motion. The hip was stable in all positions. There was good soft tissue tension and appropriate leg lengths. The hip was copiously irrigated with sterile saline. Previously tagged capsule and tendons were reapproximated to the posterolateral femur through 2 trochanteric drill holes. The lateral fascial layer was closed using interrupted #1 Vicryls. The rest of the incision was closed in a layered fashion using 0 and 2-0 Vicryls. The skin was closed using running 3-0 Monocryl with Dermabond. Sterile Adaptic, 4x4s, and paper tape were used to cover the incision. The patient's anesthesia was reversed without difficulty. She was taken to the PACU in stable condition. Intended weightbearing will be weightbearing as tolerated. Intended DVT prophylaxis will be Eliquis. [id number]/[facility] #: [id number] SACHIN
[2018-09-07] MEDS: Acetaminophen TAB* 325 MG PO SCH ×3 (01:17→17:19)
[2018-09-07] MEDS: Clindamycin 600 MG IVPREMIX(* 600 MG/50 ML SDV IV SCH ×2 (05:26→14:39)
[2018-09-07] MEDS: Levothyroxine TAB* 125 MCG TAB PO SCH (05:28)
[2018-09-07 06:42] LABS: Hematocrit 31 % (35-47); Hemoglobin 10.4 g/dl (12.0-16.0); Mean Platelet Volume 10.3 fL (7.4-10.4); Platelet Count 112 10^3/ul (150-450)
[2018-09-07 06:54] LABS: Calcium 8.9 mg/dL (8.6-10.3); Potassium 3.5 mmol/L (3.5-5.0)
[2018-09-07 06:55] LABS: INR 1.26 (0.77-1.02)
[2018-09-07 07:00] LABS: BUN/Creatinine Ratio 24.1 (8-20)
[2018-09-07] MEDS: Ondansetron INJ* 2 MG/ML VIAL IV PRN ×2 (08:11→14:45)
[2018-09-07] MEDS: Morphine INJ* 2 MG/ML 1 ML SYRINGE (TWO MG - NEW SYRINGE VERSION) IV PRN (08:11)
[2018-09-07] MEDS: Insulin LISPRO* 1 UNITS UNIT SUBCUT SCH ×3 (08:12→17:20)
[2018-09-07] MEDS: Lactated Ringers 1000 ML Bag* 1,000 ML IV SCH (08:20)
[2018-09-07] MEDS ORDERED: Insulin GLARGINE(*) 1 UNITS UNIT SUBCUT SCH ×2 (09:00)
[2018-09-07] MEDS ORDERED: NON FORMULARY MED* (Losartan Potassium [Cozaar] 50 MG) PO SCH (09:00)
[2018-09-07] MEDS ORDERED: Enoxaparin(*) 30 MG/0.3 ML SYR SUBCUT SCH (09:00)
--- NOTE | 2018-09-07 09:36 | CONS ---
[facility] MEDICINE CONSULTATION REPORT: DATE OF CONSULT: 09/06/18 PROVIDER: Aline Bruno NP. ATTENDING PHYSICIAN: Dr. Workman. CONSULTING PHYSICIAN: Dr. Bernardo Cook (dictated by Aline Bruno NP). REASON FOR CONSULT: Co-management of chronic medical conditions. HISTORY OF PRESENT ILLNESS: Ms. Stack is an 83-year-old female with a past medical history significant for hypertension, GERD, hyperlipemia, diabetes, history of breast cancer, hypothyroid, and chronic kidney disease, who presented to the [facility] for an elective left total hip arthroplasty with Dr. Workman. Please see dictated H and P from Alejandra Carr for complete details. In brief, the patient had ongoing pain and failed conservative measures, therefore opted to have an elective right total hip replacement with Dr. Workman. In the immediate postoperative period, the patient denies any complaints. The patient denies any recent illnesses. Denies any chest pain or shortness of breath. Denies any cough, congestion, or hemoptysis. Denies any nausea, vomiting, or diarrhea. Denies any abdominal pain. Denies any gross hematuria or dysuria. Denies any urinary frequency or urgency. She did report left hip pain. PAST MEDICAL HISTORY: Significant for: 1. Hypertension. 2. GERD. 3. Hyperlipidemia. 4. Diabetes. 5. History of breast cancer. 6. Hypothyroidism. 7. Chronic kidney disease. PAST SURGICAL HISTORY: Lumpectomy and mastectomy. HOME MEDICATIONS: Include: 1. Omeprazole 20 mg p.o. daily. 2. Lantus 27 units in the morning. 3. Hydrochlorothiazide 12.5 mg p.o. q.a.m. 4. Potassium 5 mEq p.o. q.i.d. 5. Omeprazole 20 mg p.o. q.a.m. 6. Losartan 50 mg p.o. q.a.m. 7. Levothyroxine 125 mcg p.o. q.a.m. 8. Vitamin B12 1000 mcg p.o. q.a.m. 9. Vitamin D 1 tab p.o. a.m. 10. Atorvastatin 10 mg p.o. a.m. 11. Atenolol 25 mg p.o. q.a.m. 12. Arimidex 1 mg p.o. q.a.m. 13. Allopurinol 100 mg p.o. q.a.m. ALLERGIES: She has allergy to CODEINE, PNEUMOCOCCAL VACCINE, PENICILLIN, TRAMADOL, and KIZZY INHIBITORS. FAMILY HISTORY: Mother and father with a history of hypertension. No reported history of diabetes. Mother with a history of colon cancer. Daughter with a history of breast cancer. SOCIAL HISTORY: Denies any tobacco, alcohol, or illicit drug use. She is . She lives with her . Surrogate decision maker in the event she is unable to make her own decisions is her . She is a full code. REVIEW OF SYSTEMS: General: There has been no fevers, no chill. No unintended weight loss. Denies any chest pain or edema. Denies any cough, congestion, or hemoptysis. Denies any shortness of breath. She does report some mild hypoxia. Denies any abdominal pain or diarrhea. Denies any gross hematuria or dysuria. Neurologic: She denies any weakness or sensory loss. Denies any visual complaints. Musculoskeletal: She denies any arthralgias or myalgias. Skin: No rashes, lesions, or open sores. Denies any depression or anxiety. PHYSICAL EXAM: Vital Signs: Blood pressure 130/55, temperature 96.1, heart rate was 69, respiratory rate is 16, O2 saturation was 100% on 2 L. General: Ms. Stack is drowsy, resting on the stretcher in PACU. She is in no acute distress. Respirations are easy . HEENT: Head is atraumatic, normocephalic. Eyes: EOMs are intact. Sclerae anicteric and not pale. Oral mucosa appeared to be dry. Neck is supple. Lungs are clear to auscultation bilaterally. No wheezes, rales, or rhonchi. Cardiac: S1, S2. Regular rate and rhythm. No murmurs, rubs, or gallops. Abdomen is soft and nontender. Bowel sounds are present x4. Extremities: Pedal pulses are +2 bilaterally. She has a dressing to the left hip that is dry and intact. Neurologic: She is awake, drowsy, resting on the stretcher in PACU. She is in no acute distress. Speech is clear. There is no gross focal deficits. Skin: She has a dressing, dry and intact to her left hip. DIAGNOSTIC STUDIES/LAB DATA: Lab work from 08/29/18, WBCs were 8.0, RBCs 4.42, hemoglobin 13.0, hematocrit was 40, platelet count was 171. INR was 1.12. Sodium 141, potassium was 4.3, chloride 106, carbon dioxide was 26, anion gap was 9, BUN was 38, creatinine 1.51. Glucose was 97. Hemoglobin A1c on was 6.8. Urine had trace leukocyte esterase on 08/29/18 and squamous epithelial cells were present. So, rest of the urinalysis was within normal limits. ASSESSMENT AND PLAN: Ms. Stack is an 83-year-old female with past medical history significant for hypertension, gastroesophageal reflux disease, increased cholesterol, diabetes, history of breast cancer, hypothyroid, and chronic kidney disease, who presented for a left total hip arthroplasty with Dr. Workman in immediate postoperative period. The patient has no complaints. We are asked to consult to how to co-manage her chronic medical conditions. Our recommendations are as follows: 1. Status post left total hip arthroplasty. Management per Orthopedics, PT/OT per Orthopedics. Pain management per Orthopedics. 2. Hypertension. I will hold her hydrochlorothiazide. At this time, we will continue losartan withholding parameters for the systolic blood pressure less than 120. I will continue her atenolol 25 mg p.o. q.a.m., again withholding parameters for blood pressure less than 120, heart rate less than 60. 3. Diabetes. I will place her own fingersticks a.c. and h.s. She will have Lispro sliding scale and she can have Lantus 27 units subcu a.m. 4. Hypothyroid. She will continue on levothyroxine 125 mcg p.o. daily. 5. Chronic kidney disease. I would avoid nephrotoxic medications. 6. Increased cholesterol. She should continue on atorvastatin 10 mg p.o. daily. 7. FEN: The patient should have a heart-healthy, decaf, consistent carbohydrate diet. 8. DVT prophylaxis, per Orthopedics. 9. Code status. She is a full code. TIME SPENT: Time spent on this consultation was 60 minutes, greater than half that time was spent at the bedside obtaining my history and physical, the other half of time was spent going over my plan of care and implementing my plan of care. I have discussed this with my attending, Dr. Bernardo Cook; he is in agreement with my plan. ALINE BRUNO, APRON CLEANER [id number]/[facility] #: [id number] [facility] HOSPITALDeuce
[2018-09-07] MEDS: Apixaban* 2.5 MG TAB PO SCH ×2 (11:02→20:41)
[2018-09-07] MEDS: Atorvastatin* 10 MG TAB PO SCH (11:02)
[2018-09-07] MEDS: Atenolol TAB* 25 MG PO SCH (11:03)
[2018-09-07] MEDS: Vitamin THERAPEUTIC TAB PO SCH (11:13)
[2018-09-07] MEDS: Losartan TAB* 25 MG PO SCH (11:13)
[2018-09-07] MEDS: Magnesium Hydroxide LIQ* 30 ML UDC PO SCH ×2 (11:13→20:42)
[2018-09-07] MEDS: Cyanocobalamin TAB* 500 MCG PO SCH (11:14)
[2018-09-07] MEDS: Docusate CAP* 100 MG PO SCH ×2 (11:14→20:42)
--- NOTE | 2018-09-07 11:18 | PN ---
Progress Note - Progress Note Date of Service: 09/07/18 SOAP: Subjective: []Pt seen and examined at bedside. She is feeling dizzy and nauseous. Denies CP , SOB, dizziness, nausea. Does feel lightheaded with activity. Hip pain is moderate, taking IV morphine as she is unable to keep PO meds down due to vomiting. Objective: []General: NAD LLE: Hip dressing CDI, no erythema, thigh is soft. DF/PF intact, sensation intact to light touch distally, DP2+, capillary refill less than two seconds distally. Calves supple and nontender without erythema, edema or palpable cords Assessment: []POD 1 SP Left total hip arthroplsty 09/06 Dr Workman Plan: []WBAT PT/OT, posterior hip precautions eliquis 2.5 mg po BID x 30 days post op Nausea and lightheadedness: IV zofran, scop patch, fluid bolus Vital Signs Temp 97.6 F 09/07/18 07:38 Pulse 65 09/07/18 07:38 Resp 18 09/07/18 08:11 BP 107/38 09/07/18 07:38 Pulse Ox 94 09/07/18 08:00 Intake & Output 09/06/18 09/07/18 09/07/18 18:59 06:59 18:59 Intake Total 1999 655 979 Output Total 545 0 Balance 1999 110 979 Weight 208 lb Intake: IV Fluids 1999 979 LR 1999 979 IVPB 55 ABX - CLINDAMYCIN 55 Oral 600 Output: Hutson 545 0 Laboratory Last Values Hgb 10.4 g/dl (12.0-16.0) L 09/07/18 06:16 Hct 31 % (35-47) L 09/07/18 06:16 Plt Count 112 10^3/ul (150-450) L 09/07/18 06:16 MPV 10.3 fL (7.4-10.4) 09/07/18 06:16 INR (Anticoag Therapy) 1.26 (0.77-1.02) H 09/07/18 06:16 Sodium 140 mmol/L (135-145) 09/07/18 06:16 Potassium 3.5 mmol/L (3.5-5.0) 09/07/18 06:16 Chloride 105 mmol/L (101-111) 09/07/18 06:16 Carbon Dioxide 27 mmol/L (22-32) 09/07/18 06:16 Anion Gap 8 mmol/L (2-11) 09/07/18 06:16 BUN 32 mg/dL (6-24) H 09/07/18 06:16 Creatinine 1.33 mg/dL (0.51-0.95) H 09/07/18 06:16 Est GFR ( Amer) 46.0 (>60) 09/07/18 06:16 Est GFR (Non-Af Amer) 38.0 (>60) 09/07/18 06:16 BUN/Creatinine Ratio 24.1 (8-20) H 09/07/18 06:16 Glucose 102 mg/dL (70-100) H 09/07/18 06:16 POC Glucose (mg/dL) 112 mg/dL (70-100) H 09/07/18 07:27 Calcium 8.9 mg/dL (8.6-10.3) 09/07/18 06:16
[2018-09-07] MEDS ORDERED: Lactated Ringers 1000 ML Bag* 1,000 ML IV ONE (11:19)
[2018-09-07] MEDS ORDERED: Scopolamine 1.5 mg* PATCH TRANSDERM SCH (12:00)
--- NOTE | 2018-09-07 18:51 | PN ---
Subjective Date of Service: 09/07/18 Interval History: Received call from nurse this morning that patient's BG was 107 and she had a decrease in intake due to nausea, therefore, wondering if Lantus should be held. Order provided to hold lantus given decrease in intake. On assessment this afternoon patient is resting in chair with family at bedside. Reports nausea and dry heaving. Reports this has happened to her before in the post operative period. Denies chest pain/palpitation, sob, vomiting, diarrhea, fever/chills Objective Active Medications: Acetaminophen (Tylenol Tab*) 975 mg PO Q8H [facility] Last Admin: 09/07/18 17:19 Dose: 975 mg Apixaban (Eliquis*) 2.5 mg PO BID [facility] Last Admin: 09/07/18 11:02 Dose: 2.5 mg Atenol[facility] ([facility]ormin Tab*) [facility] [place] Last Admin: 09/07/18 11:03 Dose: 25 mg Atorvastatin Calcium (Lipitor*) 10 mg PO [facility] Last Admin: 09/07/18 11:02 Dose: 10 mg Bisacodyl (Dulcolax Supp*) [address] DAILY PRN PRN Reason: constipation Cyanocobalamin (Vitamin B12 Tab*) 1,000 [facility]cg [facility] [place] Last Admin: 09/07/18 11:14 Dose: Not Given Cyclobenzaprine HCl (Flexeril Tab*) 5 mg PO TID PRN PRN Reason: SPASMS Dextrose (D50w Syringe 50 Ml*) 12.5 gm IV PUSH .FOR FS < 60 - SS PRN PRN Reason: FS < 60 Diphenhydramine HCl (Benadryl Iv*) 25 mg IV Q6H PRN PRN Reason: itching Docusate Sodium (Colace Cap*) 100 mg PO BID [facility] Last Admin: 09/07/18 11:14 Dose: Not Given Lactated Ringer's (Lactated Ringers 1000 Ml Bag*) 1,000 mls @ 75 mls/hr IV PER RATE [facility] Last Admin: 09/07/18 08:20 Dose: 75 mls/hr Insulin Glargine (Lantus(*)) 27 units SUBCUT [facility] Last Admin: 09/07/18 11:14 Dose: Not Given Insulin Human Lispro (Humalog*) 0 units SUBCUT AC DIANA; Protocol Last Admin: 09/07/18 17:20 Dose: 4 units Lactulose (Lactulose*) 30 ml PO Q6H PRN PRN Reason: constipation Levothyroxine Sodium (Synthroid Tab*) 125 mcg PO QAM@0600 [facility] Last Admin: 09/07/18 05:28 Dose: 125 mcg Losartan Potassium (Cozaar Tab*) 50 mg PO QAM [facility] Last Admin: 09/07/18 11:13 Dose: Not Given Magnesium Hydroxide (Milk Of Magnesia Liq*) 30 ml PO BID [facility] Last Admin: 09/07/18 11:13 Dose: Not Given Magnesium Hydroxide (Milk Of Magnesia Liq*) 30 ml PO Q6H PRN PRN Reason: constipation Morphine Sulfate (Morphine Inj ((Syringe))*) 2 mg IV Q2H PRN PRN Reason: PAIN Last Admin: 09/07/18 08:11 Dose: 2 mg Multivitamins (Theragran Tab*) 1 tab PO DAILY [facility] Last Admin: 09/07/18 11:13 Dose: Not Given Ondansetron HCl (Zofran Inj*) 4 mg IV Q6H PRN PRN Reason: nausea Last Admin: 09/07/18 14:45 Dose: 4 mg Oxycodone HCl (Roxycodone Tab*) 10 mg PO Q4H PRN PRN Reason: PAIN - SEVERE Oxycodone/Acetaminophen (Percocet 5/325 Tab*) 1 tab PO Q4H PRN PRN Reason: PAIN Oxycodone/Acetaminophen (Percocet 5/325 Tab*) 2 tab PO Q4H PRN PRN Reason: PAIN Last Admin: 09/07/18 05:41 Dose: 2 tab Pantoprazole Sodium (Protonix Tab*) 40 mg PO QAM PRN PRN Reason: INDIGESTION Scopolamine (Transderm-Scop 1.5 Mg Patch*) 1 patch TRANSDERM Q72H [facility] Last Admin: 09/07/18 11:39 Dose: 1 patch Tramadol HCl (Ultram*) 50 mg PO Q6H PRN PRN Reason: PAIN Vital Signs - 8 hr 09/07/18 09/07/18 09/07/18 11:32 16:00 16:31 Temperature 98.3 F 97.4 F Pulse Rate 63 68 Respiratory 17 16 Rate Blood Pressure 112/53 114/44 (mmHg) O2 Sat by Pulse 100 96 96 Oximetry Oxygen Devices in Use Now: None Appearance: NAD Eyes: No Scleral Icterus Ears/Nose/Mouth/Throat: Clear Oropharnyx, Mucous Membranes Moist Neck: NL Appearance and Movements; NL JVP Respiratory: Symmetrical Chest Expansion and Respiratory Effort, Clear to Auscultation Cardiovascular: NL Sounds; No Murmurs; No JVD, RRR, No Edema Abdominal: NL Sounds; No Tenderness; No Distention Lymphatic: No Cervical Adenopathy Extremities: No Edema Skin: No Rash or Ulcers, - - Dressing to left hip CDI Neurological: Alert and Oriented x 3 Nutrition: Taking PO's Result Diagrams: 09/07/18 06:16 09/07/18 06:16 Additional Lab and Data: Laboratory Results - last 24 hr 09/06/18 09/07/18 09/07/18 23:31 06:16 06:16 Hgb 10.4 L Hct 31 L Plt Count 112 L MPV 10.3 INR (Anticoag Therapy) 1.26 H Sodium Potassium Chloride Carbon Dioxide Anion Gap BUN Creatinine Est GFR ( Amer) Est GFR (Non-Af Amer) BUN/Creatinine Ratio Glucose POC Glucose (mg/dL) 107 H Calcium 09/07/18 09/07/18 09/07/18 06:16 07:27 11:43 Hgb Hct Plt Count MPV INR (Anticoag Therapy) Sodium 140 Potassium 3.5 Chloride 105 Carbon Dioxide 27 Anion Gap 8 BUN 32 H Creatinine 1.33 H Est GFR ( Amer) 46.0 Est GFR (Non-Af Amer) 38.0 BUN/Creatinine Ratio 24.1 H Glucose 102 H POC Glucose (mg/dL) 112 H 162 H Calcium 8.9 09/07/18 16:57 Hgb Hct Plt Count MPV INR (Anticoag Therapy) Sodium Potassium Chloride Carbon Dioxide Anion Gap BUN Creatinine Est GFR ( Amer) Est GFR (Non-Af Amer) BUN/Creatinine Ratio Glucose POC Glucose (mg/dL) 205 H Calcium Assess/Plan/Problems-Billing Assessment: 83 yr old with pmh of htn, hld, dm, gerd, and hypothyroid; who is status post left total hip replacement - Patient Problems (1) History of total left hip arthroplasty Comment: - POD 1 - Management per ortho (2) Hypertension Comment: - Cont Atenolol and Losartan with holding parameters - Hold HCTZ for now (3) Diabetes Comment: - Given patient's decrease in intake due to nasuea, I will decrease lantus from 27 units to 14 units daily - Cont SS (4) Hypothyroid Comment: - Cont Levothyroxine (5) Chronic kidney disease Comment: - Creatinine 1.33 which is patient's baseline - Avoid nephrotoxic medications (6) Hyperlipidemia Comment: - Cont statin (7) DVT prophylaxis Comment: - Eliquis at renal dose per ortho (8) Full code status Status and Disposition: Thank you for allowing us to assist in the care of this patient. We will follow along with you. Attending: Brad Powell
[2018-09-08] MEDS: Acetaminophen TAB* 325 MG PO SCH ×2 (01:37→10:03)
[2018-09-08] MEDS: Levothyroxine TAB* 125 MCG TAB PO SCH (05:48)
[2018-09-08 06:52] LABS: Hematocrit 31 % (35-47); Hemoglobin 10.2 g/dl (12.0-16.0); Mean Platelet Volume 10.5 fL (7.4-10.4); Platelet Count 109 10^3/ul (150-450)
[2018-09-08 06:56] LABS: INR 2.25 (0.77-1.02)
[2018-09-08 07:10] LABS: BUN/Creatinine Ratio 17.9 (8-20); Calcium 9.2 mg/dL (8.6-10.3); EGFR African American 41.6 (>60); EGFR Non-African American 34.4 (>60); Potassium 3.7 mmol/L (3.5-5.0)
[2018-09-08] MEDS: Insulin LISPRO* 1 UNITS UNIT SUBCUT SCH ×2 (08:13→12:12)
[2018-09-08] MEDS ORDERED: Insulin GLARGINE(*) 1 UNITS UNIT SUBCUT SCH (09:00)
[2018-09-08] MEDS ORDERED: Enoxaparin(*) 40 MG/0.4 ML SYR SUBCUT SCH (09:00)
--- NOTE | 2018-09-08 09:05 | PN ---
Progress Note - Progress Note Date of Service: 09/08/18 SOAP: Subjective: []Pt seen and examined at bedside. She feels well and desires DC to PMRU. Denies CP, SOB, dizziness, nausea. Objective: []General: NAD LLE: Hip dressing changed, incision CDI, no erythema, thigh is soft. DF/PF intact, sensation intact to light touch distally, DP2+, capillary refill less than two seconds distally. Calves supple and nontender without erythema, edema or palpable cords Assessment: []POD 2 SP Left total hip arthroplsty 09/06 Dr Workman Plan: []WBAT PT/OT, posterior hip precautions eliquis 2.5 mg po BID x 30 days post op. Had received one dose of Coumadin POD 0 of 6 mg for which INR is reflective. Changed to eliquis POD 1 before any lovenox or or other bridging agent had been given. Watch for any signs of bleeding and watch O2 sat DC to PMRU today Vital Signs Temp 99.1 F 09/08/18 07:41 Pulse 91 09/08/18 07:41 Resp 16 09/08/18 08:00 BP 124/45 09/08/18 07:41 Pulse Ox 95 09/08/18 08:00 Intake & Output 09/07/18 09/08/18 09/08/18 18:59 06:59 18:59 Intake Total 1034 1620 100 Output Total 250 1100 0 Balance 784 520 100 Intake: IV Fluids 979 990 LR 979 990 IVPB 55 ABX - CLINDAMYCIN 55 Oral 630 100 Output: Urine 250 1100 0 Hutson 0 Other: Date of Last Bowel 09/07/18 Movement # Bowel Movements 1 Estimated Stool Amount Small Laboratory Last Values Hgb 10.2 g/dl (12.0-16.0) L 09/08/18 06:39 Hct 31 % (35-47) L 09/08/18 06:39 Plt Count 109 10^3/ul (150-450) L 09/08/18 06:39 MPV 10.5 fL (7.4-10.4) H 09/08/18 06:39 INR (Anticoag Therapy) 2.25 (0.77-1.02) H 09/08/18 06:39 Sodium 139 mmol/L (135-145) 09/08/18 06:39 Potassium 3.7 mmol/L (3.5-5.0) 09/08/18 06:39 Chloride 107 mmol/L (101-111) 09/08/18 06:39 Carbon Dioxide 30 mmol/L (22-32) 09/08/18 06:39 Anion Gap 2 mmol/L (2-11) 09/08/18 06:39 BUN 26 mg/dL (6-24) H 09/08/18 06:39 Creatinine 1.45 mg/dL (0.51-0.95) H 09/08/18 06:39 Est GFR ( Amer) 41.6 (>60) 09/08/18 06:39 Est GFR (Non-Af Amer) 34.4 (>60) 09/08/18 06:39 BUN/Creatinine Ratio 17.9 (8-20) 09/08/18 06:39 Glucose 141 mg/dL (70-100) H 09/08/18 06:39 POC Glucose (mg/dL) 149 mg/dL (70-100) H 09/08/18 07:58 Calcium 9.2 mg/dL (8.6-10.3) 09/08/18 06:39
[2018-09-08] MEDS: Losartan TAB* 25 MG PO SCH (10:02)
[2018-09-08] MEDS: Atenolol TAB* 25 MG PO SCH (10:03)
[2018-09-08] MEDS: Atorvastatin* 10 MG TAB PO SCH (10:03)
[2018-09-08] MEDS: Vitamin THERAPEUTIC TAB PO SCH (10:03)
[2018-09-08] MEDS: Cyanocobalamin TAB* 500 MCG PO SCH (10:03)
[2018-09-08] MEDS: Docusate CAP* 100 MG PO SCH (10:03)
[2018-09-08] MEDS: Magnesium Hydroxide LIQ* 30 ML UDC PO SCH (10:04)
[2018-09-08 11:32] VITALS: BP 130/39
[2018-09-08] MEDS ORDERED: Apixaban* 2.5 MG TAB PO SCH ×3 (12:00→21:00)
[2018-09-08] MEDS ORDERED: Warfarin TAB(*) 4 MG PO ONE (17:00)
[2018-09-08] MEDS ORDERED: Warfarin TAB(*) 6 MG PO SCH (17:00)
--- NOTE | 2018-09-08 20:17 | DS ---
DISCHARGE SUMMARY: DATE OF ADMISSION: 09/06/18 DATE OF DISCHARGE: 09/08/18 PROVIDER: Dr. 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 OPERATIVE PROCEDURE: Left total hip arthroplasty. HISTORY: Ms. Stack is an 83-year-old female with years of increasingly severe left hip pain. She failed conservative management and elected to undergo a left total hip arthroplasty. HOSPITAL COURSE: The patient was admitted to [facility] on . She underwent a left total hip arthroplasty without complication. Postop day 1, she was well appearing, in no acute distress. Hip dressing clean, dry, and intact. Dorsiflexion and plantarflexion intact. Sensation intact to light touch distally. DP pulse 2+. She was also seen by our hospitalist service during her stay for management of hypertension and diabetes. Her Lantus dose was decreased from 27 to 14 units daily due to poor p.o. intake. Postop day 2, she was well appearing, in no acute distress. Dressing was changed. Incision clean, dry, and intact. No change in the remainder of the exam. Labs: Hemoglobin 10.2, hematocrit 31, platelets 109. INR 2.25 despite the patient was only given 6 mg of Coumadin on postop day 0, she had not received Coumadin or Lovenox and she was switched to Eliquis morning of 09/07/18. DISCHARGE MEDICATIONS: 1. Vitamin B12 1000 mcg p.o. q.a.m. 2. Allopurinol 100 mg p.o. q.a.m. 3. Levothyroxine 125 mcg p.o. q.a.m. 4. Lantus 27 units subcu a.m. The patient can resume this when she is tolerating a normal diet again. Please wean up slowly from 14 units q.a.m. and see how the patient tolerates. 5. Potassium 5 mEq p.o. four times daily. 6. Losartan potassium 50 mg p.o. q.a.m. 7. Atenolol 25 mg p.o. q.a.m. 8. Hydrochlorothiazide 12.5 mg p.o. q.a.m. 9. Atorvastatin 10 mg p.o. q.a.m. 10. Omeprazole 20 mg p.o. q.a.m. p.r.n. 11. Vitamin D3 one tab p.o. q.a.m. 12. Anastrozole 1 mg p.o. q.a.m. 13. Acetaminophen 975 mg p.o. q.8 hours p.r.n. 14. Eliquis 2.5 mg p.o. b.i.d. 15. Docusate 100 mg p.o. b.i.d. 16. Insulin lispro per instructions. 17. Oxycodone 10 mg p.o. q.4 hours p.r.n. 18. Percocet 5/325 one to two tabs every 4 to 6 hours as needed for pain, max 10 tabs per day. 19. Scopolamine patch 1.5 mg q.72 hours. 20. Tramadol 50 mg p.o. q.6 hours p.r.n. DISCHARGE PLAN: The patient is discharged to [facility]. She is weightbearing as tolerated. Continue hip precautions. DVT prophylaxis: 2.5 mg of Eliquis every 12 hours for 1 month. Pain control: Percocet 5/325 one to two tabs every 4 to 6 hours as needed for pain, max daily dose 10 tabs. Lantus dose decreased yesterday by half due to poor p.o. intake. [facility] to guide, increase as tolerated to home dose. DISPOSITION: Discharged to [facility]. SUZE REGAN [id number]/[facility] #: [id number] SACHIN
== END 2018-09-08 13:45 | DRG 470 ==
LOC: AA 09:35 → SSU 18:34
PROVIDERS: ADMIT Orthopaedic Surgery Adult Reconstructive Orthopaedic Surgery; ATTEND Orthopaedic Surgery Adult Reconstructive Orthopaedic Surgery
PROC: 0SRB04A Replacement of Left Hip Joint with Ceramic on Polyethylene Synthetic Substitute, Uncemented, Open Approach (ICD-10-PCS; principal; 2018-09-06 13:00)
DX: M16.12 Unilateral primary osteoarthritis, left hip (principal); I12.9 Hypertensive chronic kidney disease with stage 1 through stage 4 chronic kidney disease, or unspecified chronic kidney disease; E11.22 Type 2 diabetes mellitus with diabetic chronic kidney disease; N18.9 Chronic kidney disease, unspecified; K21.9 Gastro-esophageal reflux disease without esophagitis; E66.01 Morbid (severe) obesity due to excess calories; E78.5 Hyperlipidemia, unspecified; E78.00 Pure hypercholesterolemia, unspecified; E03.9 Hypothyroidism, unspecified; Z85.3 Personal history of malignant neoplasm of breast; Z88.6 Allergy status to analgesic agent; Z88.5 Allergy status to narcotic agent; Z88.0 Allergy status to penicillin; Z88.8 Allergy status to other drugs, medicaments and biological substances; Z90.12 Acquired absence of left breast and nipple; Z85.038 Personal history of other malignant neoplasm of large intestine; Z87.442 Personal history of urinary calculi; Z90.710 Acquired absence of both cervix and uterus; Z98.42 Cataract extraction status, left eye; Z98.41 Cataract extraction status, right eye; Z80.0 Family history of malignant neoplasm of digestive organs; Z82.49 Family history of ischemic heart disease and other diseases of the circulatory system; Q65.89 Other specified congenital deformities of hip; R42 Dizziness and giddiness; R11.0 Nausea; Z79.4 Long term (current) use of insulin; Z79.01 Long term (current) use of anticoagulants; Z80.3 Family history of malignant neoplasm of breast; Z68.35 Body mass index [BMI] 35.0-35.9, adult
CPT/HCPCS: 36415; 80048; 85014; 85018; 85049; 85610; 88304; 88311; A9270-GY; C1713; C1776; G8978-GP-CK; G8979-GP-CI; G8987-GO-CL; G8988-GO-CJ; J1240; J2250; J2270; J2405

== ENCOUNTER 2018-09-08 09:35 | Inpatient (IN) | payer MEDICARE, BC ==
[2018-09-08] MEDS ORDERED: Senna TAB PO PRN (14:19)
[2018-09-08] MEDS ORDERED: Magnesium Hydroxide LIQ* 30 ML UDC PO PRN (14:19)
[2018-09-08] MEDS ORDERED: Dextrose 50% Syringe 50 ML* 25 GM/50 ML SYRINGE IV PUSH PRN (14:38)
[2018-09-08] MEDS ORDERED: oxyCODONE/Acetamin 5/325 MG* TAB PO PRN ×2 (14:39→14:48)
[2018-09-08] MEDS: Insulin LISPRO* 1 UNITS UNIT SUBCUT SCH (17:40)
--- NOTE | 2018-09-08 18:14 | HP ---
ADMISSION HISTORY AND PHYSICAL: DATE OF ADMISSION: 09/08/18 REASON FOR ADMISSION: The patient has had a left total hip replacement. HISTORY OF PRESENT ILLNESS: Harleen Stack is an 83-year-old female. She has a medical history significant for diabetes mellitus. She has had difficulty with her left hip for a while. She had seen Dr. Workman and had x-rays taken of the hip which showed end-stage osteoarthritis. She had failed conservative treatment including physical therapy. It was decided the best course of action would be for her to have a left total hip replacement. She was admitted to [facility] on 09/06/18. She underwent a total hip replacement that day. Postoperatively, her course was benign. She was put on Eliquis for DVT prophylaxis. She is now being admitted for inpatient rehab so that she might return to independent living. PAST MEDICAL HISTORY: Includes diabetes mellitus. She has a history of breast cancer, hypothyroidism, hypertension. She also has a history of chronic kidney disease. PAST SURGICAL HISTORY: As far as her breast cancer, she had a mastectomy done in April of 2018. ALLERGIES: Include CODEINE, PENICILLIN, KIZZY INHIBITORS, AMOXICILLIN, PREVNAR, TRAMADOL. SOCIAL HISTORY: She is a nonsmoker, nondrinker. Lives with her in a 3- story house, but they stay largely on 2 levels. REVIEW OF SYSTEMS: The patient reports no current shortness of breath or chest pain. PHYSICAL EXAMINATION VITAL SIGNS: The patient's temperature is 98.0, blood pressure is 120/44, pulse 81, respirations 16. HEENT: Her extraocular movements are intact. Tongue is midline. NECK: Supple. LUNGS: Sound clear to auscultation bilaterally. HEART: Sounds are regular. S1 and S2 are audible. ABDOMEN: Soft and nontender. EXTREMITIES: Her left hip has a wound which is clean and dry. She has trace edema at the left ankle. Peripheral pulses are intact. NEUROLOGIC: Sensation was intact. Muscle strength is 5/5 in both upper extremities, right lower extremity is 5/5, left lower extremity is 3/5 proximally because of pain. She can dorsiflex the left foot. FUNCTIONAL EXAM: She transfers with min assist. ASSESSMENT: 1. Left total hip replacement. 2. Diabetes mellitus. PLAN: Integrate her into a comprehensive and therapeutic rehab program. We will have the following goals: 1. Physical Therapy will work with the patient. They are going to work on functional transfer training, ambulation training with a walker. 2. Occupational Therapy will see the patient, work on her activities of daily living including toileting and toilet transfers. 3. Eliquis for DVT prophylaxis. 4. Adequate analgesia. Right now, the patient is only using Tylenol for pain, but we will order Percocet if she needs something stronger. 5. Her bowels will be regulated. 6. For her diabetes, we will do fingersticks 4 times a day with appropriate insulin coverage. In addition, the patient takes Lantus insulin. 7. Continue Synthroid for hypothyroidism. 8. We will continue her Cozaar and Tenormin for high blood pressure. 9. guest services attendant will be closely involved to make sure that any services and equipment the patient requires are in place prior to discharge. 10. Family training as appropriate. 11. Home with appropriate services. ESTIMATED LENGTH OF STAY: 7 to 10 days. [id number]/[facility] #: [id number] SACHIN
[2018-09-08] MEDS: Docusate CAP* 100 MG PO SCH (19:34)
[2018-09-08] MEDS: Acetaminophen TAB* 325 MG PO PRN (19:36)
[2018-09-09] MEDS: Levothyroxine TAB* 125 MCG TAB PO SCH (05:10)
[2018-09-09 05:13] LABS: ABS Basophils 0 10^3/ul (0-0.2); ABS Eosinophils 0.2 10^3/ul (0-0.6); ABS Lymphocytes 0.8 10^3/ul (1.0-4.8); ABS Monocytes 0.5 10^3/ul (0-0.8); ABS Neutrophils 4.2 10^3/ul (1.5-7.7); ABS Nucleated RBC 0 10^3/ul; Eosinophil % 3.5 %; Hematocrit 29 % (35-47); Hemoglobin 9.7 g/dl (12.0-16.0); Lymphocyte % 14.6 %; Mean Corpuscular HGB Conc 33 g/dl (31-36); Mean Corpuscular Hemoglobin 30 pg (27-31); Mean Corpuscular Volume 90 fL (80-97); Mean Platelet Volume 9.9 fL (7.4-10.4); Nucleated Red Blood Cells % 0; Platelet Count 117 10^3/ul (150-450); Red Blood Count 3.26 10^6/ul (4.00-5.40); Red Cell Distribution Width 15 % (10.5-15); White Blood Count 5.8 10^3/ul (3.5-10.8)
[2018-09-09 05:31] LABS: Albumin 3.2 g/dL (3.2-5.2); Albumin/Globulin Ratio 1.3 (1-3); BUN/Creatinine Ratio 18.4 (8-20); Calcium 9.1 mg/dL (8.6-10.3); EGFR Non-African American 33.9 (>60); Globulin 2.4 g/dL (2-4); Potassium 3.5 mmol/L (3.5-5.0); Total Bilirubin 0.4 mg/dL (0.2-1.0); Total Protein 5.6 g/dL (6.4-8.9)
[2018-09-09 05:45] LABS: INR 1.7 (0.77-1.02)
[2018-09-09] MEDS: Cyanocobalamin TAB* 500 MCG PO SCH (08:11)
[2018-09-09] MEDS: Atenolol TAB* 25 MG PO SCH (08:12)
[2018-09-09] MEDS: Vitamin THERAPEUTIC TAB PO SCH (08:12)
[2018-09-09] MEDS: Docusate CAP* 100 MG PO SCH ×2 (08:12→21:10)
[2018-09-09] MEDS: Losartan TAB* 25 MG PO SCH (08:12)
[2018-09-09] MEDS: Insulin LISPRO* 1 UNITS UNIT SUBCUT SCH ×3 (08:49→17:08)
[2018-09-09] MEDS ORDERED: Insulin GLARGINE(*) 1 UNITS UNIT SUBCUT SCH (09:00)
--- NOTE | 2018-09-09 12:35 | PMRUTEAM ---
PMRU: Team Meeting Current Status: Nursing: Current Status Skin Deviations [Left Hip] Incision Physical Therapy: Current Status Bed Mobility Assistance Min Assist Transfer Mobility Assistance Contact Guard Assist Transfer/Bed Mobility Rolling Walker Recommended Devices Ambulation Assistance Contact Guard Assist Ambulation Assistive Devices Rolling Walker Number of Feet Patient 55 Ambulated Stairs Assistance Contact Guard Assist Stairs Recommended Devices Two Rails Number of Stairs 5 Occupational Therapy: Current Status Upper Body Dressing Supervision Lower Body Dressing Supervision Bathing Supervision Toileting Supervision Toilet Transfer Supervision Eating Independent Social Work: Current Status Discharge Plan return home with home care svs and family support Potential for Family Training pt's is attentive and involved Anticipated Discharge Home Destination Discharge With home care svs and family support Goals: Physical Therapy: Initial Goals Bed Mobility Assistance Independent Transfer Mobility Assistance Independent Transfer/Bed Mobility Rolling Walker Recommended Devices Ambulation Independent Ambulation Recommended Devices Rolling Walker Ambulation Distance 150 Stairs Assistance Independent Stair Recommended Devices Straight Cane,One Rail Number of Stairs 13 Home Exercise Program Independent Assistance Occupational Therapy: Initial Goals Goals to be Completed in (Days 2-3 ) Upper Body Bathing Routine Independent Lower Body Bathing Routine Modified Independent with Upper Body Dressing Routine Independent Lower Body Dressing Routine Modified Independent with Toilet Hygeine and Clothing Modified Independent with Management Routine Toilet Transfer Routine Modified Independent with Step-In Shower Transfer Supervision/Set Up Routine Functional Transfers for ADL Modified Independent with Grooming Routine Independent Feeding Routine Independent Light Housekeeping Tasks Moderate Assist Social Work: Goals Discharge Plan return home with home care svs and family support Potential for Family Training pt's is attentive and involved Anticipated Discharge Home Destination Discharge With home care svs and family support Care Plan: Care Plan DVT Prophylaxis- Improve/Maintain Start: 09/08/18 15:22 Freq: QSHIFT Status: Active Target: Protocol: Activity Type Activity Date Activity User E-Sign Co-Sign Detail Recorded Client Recorded Date Recorded By Document 09/09/18 08:00 [id number] 09/09/18 09:58 [id number] 09/09/18 08:00 PMRU Outcome: DVT Prophylaxis Outcome/Goals Remains Free of DVT Complies with DVT Prophylaxis /Treatment Demonstrates Knowledge of DVT Prevention/ Treatment Progression Toward Outcome/Goals Progressing Discharge Planning - Improve/Maintain Start: 09/08/18 15:22 Freq: DAILY Status: Active Target: Protocol: Activity Type Activity Date Activity User E-Sign Co-Sign Detail Recorded Client Recorded Date Recorded By Document 09/09/18 01:13 [id number] 09/09/18 01:13 [id number] 09/09/18 01:13 PMRU Outcome: Discharge Planning Update Patient Family No Outcome/Goals Demonstrates Understanding of Discharge Plan Education-Improve/Maintain Start: 09/08/18 15:22 Freq: QSHIFT Status: Active Target: Protocol: Activity Type Activity Date Activity User E-Sign Co-Sign Detail Recorded Client Recorded Date Recorded By Document 09/09/18 08:00 [id number] 09/09/18 09:58 [id number] 09/09/18 08:00 PMRU Outcome: Education Outcome/Goals Demonstrates Skills Encourage Questions Progression Toward Outcome/Goals Progressing Medication Administration Start: 09/08/18 15:22 Freq: QSHIFT Status: Active Target: Protocol: Activity Type Activity Date Activity User E-Sign Co-Sign Detail Recorded Client Recorded Date Recorded By Document 09/09/18 08:00 [id number] 09/09/18 09:58 [id number] 09/09/18 08:00 PMRU Outcome: Medication Administration Assess Patient Knowledge/Teach Med Yes Education for all Meds Outcome/Goals Patient Independent with Medication Administration at Home Demonstrates Understanding Progression Towards Outcome/Goals Progressing Is Patient Going Home on Lovenox? No Metabolic Status- Improve/Maintain Start: 09/08/18 15:22 Freq: QSHIFT Status: Active Target: Protocol: Activity Type Activity Date Activity User E-Sign Co-Sign Detail Recorded Client Recorded Date Recorded By Document 09/09/18 08:00 [id number] [email or web address] 09/09/18 09:58 [id number] 09/09/18 08:00 PMRU Outcome: Metabolic Status Have Fingersticks Been Ordered Yes Fingerstick Order Frequency AC & HS Outcome/Goals Maintain/ Improve Metabolic Status Demonstrate Knowledge of Prevention/ Treatment of Metabolic Imbalances Progression Toward Outcome/Goals Progressing Pain/Comfort- Improve/Maintain Start: 09/08/18 15:22 Freq: QSHIFT Status: Active Target: Protocol: Activity Type Activity Date Activity User E-Sign Co-Sign Detail Recorded Client Recorded Date Recorded By Document 09/09/18 08:00 [id number] 09/09/18 09:58 [id number] 09/09/18 08:00 PMRU Outcome: Pain/Comfort Outcome/Goals Demonstrates Knowledge and Use of Available Comfort Measures Achieves Acceptable Comfort/Pain Level as Determined by Patient/Condit Maintain Comfort Level Allowing Patient to Fully Participate in Rehab Progression Toward Outcome/Goals Progressing Skin- Improve/Maintain Start: 09/08/18 15:22 Freq: QSHIFT Status: Active Target: Protocol: Activity Type Activity Date Activity User E-Sign Co-Sign Detail Recorded Client Recorded Date Recorded By Document 09/09/18 08:00 [id number] 09/09/18 09:58 [id number] 09/09/18 08:00 PMRU Outcome: Skin Skin Risk Level Low Skin Orders Heels Off Bed Turn/Position q2hr While in Bed Outcome/Goals Free from Decubitus Surgical Incisions Healing Progression Toward Outcome/Goals Progressing Medicine Note: Length of Stay: 4 days Anticipated Discharge Destination: Home Tentative Discharge Date: 09/13/18 Discharged to: Home
[2018-09-09] MEDS: Atorvastatin* 10 MG TAB PO SCH (17:10)
--- NOTE | 2018-09-09 18:31 | PN ---
Progress Note Date of Service: 09/09/18 Note: JENNIFER RYDER was visited. Therapy notes read and reviewed. The patient was discussed in interdisciplinary plan of care rounds. She is moving fairly well but has trouble getting her leg into bed. INR 1.7. Will resume Elireginald blood Current Medications: Active Medications Generic Name Dose Route Start Last Admin Trade Name Freq PRN Reason Stop Dose Admin Acetaminophen 650 mg 09/08/18 14:19 09/08/18 19:36 Tylenol Tab* PO 650 mg Q6H PRN Administration FEVER/PAIN Apixaban 2.5 mg 09/09/18 21:00 Eliquis* PO BID DIANA Atenolol 25 mg 09/09/18 09:00 09/09/18 08:12 Tenormin Tab* PO 25 mg DAILY DIANA Administration Atorvastatin Calcium 10 mg 09/09/18 17:00 09/09/18 17:10 Lipitor* PO 10 mg 1700 DIANA Administration Cyanocobalamin 1,000 mcg 09/09/18 09:00 09/09/18 08:11 Vitamin B12 Tab* PO 1,000 mcg DAILY DIANA Administration Dextrose 12.5 gm 09/08/18 14:38 D50w Syringe 50 Ml* IV PUSH .FOR FS < 60 - SS PRN FS < 60 Docusate Sodium 100 mg 09/08/18 21:00 09/09/18 08:12 Colace Cap* PO Not Given BID DIANA Insulin Glargine 14 units 09/09/18 09:00 09/09/18 08:47 Lantus(*) SUBCUT 14 units Q24H DIANA Administration Insulin Human Lispro 0 - 10 units 09/08/18 16:30 09/09/18 17:08 Humalog* SUBCUT 2 unit AC DIANA Administration Protocol Levothyroxine Sodium 125 mcg 09/09/18 06:00 09/09/18 05:10 Synthroid Tab* PO 125 mcg DAILY@0600 DIANA Administration Losartan Potassium 50 mg 09/09/18 09:00 09/09/18 08:12 Cozaar Tab* PO 50 mg DAILY DIANA Administration Magnesium Hydroxide 30 ml 09/08/18 14:19 Milk Of Magnesia Liq* PO Q6H PRN CONSTIPATION Multivitamins 1 tab 09/09/18 09:00 09/09/18 08:12 Theragran Tab* PO Not Given DAILY DIANA Oxycodone/Acetaminophen 1 tab 09/08/18 14:39 Percocet 5/325 Tab* PO Q4H PRN PAIN - MODERATE Senna 2 tab 09/08/18 14:19 Senokot Tab* PO BEDTIME PRN CONSTIPATION Vital Signs: Vital Signs Temp Pulse Resp BP Pulse Ox 98.6 F 85 16 136/41 98 09/09/18 15:21 09/09/18 15:21 09/09/18 15:21 09/09/18 15:21 09/09/18 15:21 Lab Results: Laboratory Results - last 24 hr 09/08/18 09/09/18 09/09/18 20:26 04:59 04:59 WBC 5.8 RBC 3.26 L Hgb 9.7 L Hct 29 L MCV 90 MCH 30 MCHC 33 RDW 15 Plt Count 117 L MPV 9.9 Neut % (Auto) 72.8 Lymph % (Auto) 14.6 [place] % (Auto) 8.7 Eos % (Auto) 3.5 Baso % (Auto) 0.4 Absolute Neuts (auto) 4.2 Absolute Lymphs (auto) 0.8 L Absolute Monos (auto) 0.5 Absolute Eos (auto) 0.2 Absolute Basos (auto) 0 Absolute Nucleated RBC 0 Nucleated RBC % 0 INR (Anticoag Therapy) Sodium 140 Potassium 3.5 Chloride 106 Carbon Dioxide 29 Anion Gap 5 BUN 27 H Creatinine 1.47 H Est GFR ( Amer) 41.0 Est GFR (Non-Af Amer) 33.9 BUN/Creatinine Ratio 18.4 Glucose 150 H POC Glucose (mg/dL) 209 H Calcium 9.1 Total Bilirubin 0.40 AST 19 ALT 19 Alkaline Phosphatase 30 L Total Protein 5.6 L Albumin 3.2 Globulin 2.4 Albumin/Globulin Ratio 1.3 09/09/18 09/09/18 09/09/18 04:59 07:35 12:00 WBC RBC Hgb Hct MCV MCH MCHC RDW Plt Count MPV Neut % (Auto) Lymph % (Auto) [place] % (Auto) Eos % (Auto) Baso % (Auto) Absolute Neuts (auto) Absolute Lymphs (auto) Absolute Monos (auto) Absolute Eos (auto) Absolute Basos (auto) Absolute Nucleated RBC Nucleated RBC % INR (Anticoag Therapy) 1.70 H Sodium Potassium Chloride Carbon Dioxide Anion Gap BUN Creatinine Est GFR ( Amer) Est GFR (Non-Af Amer) BUN/Creatinine Ratio Glucose POC Glucose (mg/dL) 155 H 150 H Calcium Total Bilirubin AST ALT Alkaline Phosphatase Total Protein Albumin Globulin Albumin/Globulin Ratio 09/09/18 16:41 WBC RBC Hgb Hct MCV MCH MCHC RDW Plt Count MPV Neut % (Auto) Lymph % (Auto) [place] % (Auto) Eos % (Auto) Baso % (Auto) Absolute Neuts (auto) Absolute Lymphs (auto) Absolute Monos (auto) Absolute Eos (auto) Absolute Basos (auto) Absolute Nucleated RBC Nucleated RBC % INR (Anticoag Therapy) Sodium Potassium Chloride Carbon Dioxide Anion Gap BUN Creatinine Est GFR ( Amer) Est GFR (Non-Af Amer) BUN/Creatinine Ratio Glucose POC Glucose (mg/dL) 157 H Calcium Total Bilirubin AST ALT Alkaline Phosphatase Total Protein Albumin Globulin Albumin/Globulin Ratio Exam: GENERAL: In no distress HEENT: NC/AT. EOMI LUNGS: Clear bilaterally HEART: reg rhythm ABDOMEN: Soft, +BS EXTREMITIES: wound over LLE Clean NEUROLOGIC: A&O x3, Sensation intact. Motor 5/5 except LLE Assessment/Plan: 1. Left GILMER: WBAT. PT/OT. 2. DM: Lantus/Lispro. Will increase Lantus to 20 3. Hypothyroidism: Synthroid 4. HTN: Tenormin/Cozaar 5. DVT Prophylaxis: Eliquis 6. Advanced Directives: Full Code 09/09/18 18:34 09/09/18 18:35
[2018-09-09] MEDS: Apixaban* 2.5 MG TAB PO SCH (21:10)
[2018-09-10] MEDS: Levothyroxine TAB* 125 MCG TAB PO SCH (06:40)
[2018-09-10] MEDS: Vitamin THERAPEUTIC TAB PO SCH (07:19)
[2018-09-10] MEDS: Docusate CAP* 100 MG PO SCH ×2 (07:19→21:16)
[2018-09-10] MEDS: Insulin LISPRO* 1 UNITS UNIT SUBCUT SCH ×3 (08:07→17:08)
[2018-09-10] MEDS: Cyanocobalamin TAB* 500 MCG PO SCH (08:45)
[2018-09-10] MEDS: Atenolol TAB* 25 MG PO SCH (08:45)
[2018-09-10] MEDS: Apixaban* 2.5 MG TAB PO SCH ×2 (08:45→21:15)
[2018-09-10] MEDS: Insulin GLARGINE(*) 1 UNITS UNIT SUBCUT SCH (08:46)
[2018-09-10] MEDS: Losartan TAB* 25 MG PO SCH (08:46)
[2018-09-10] MEDS: Atorvastatin* 10 MG TAB PO SCH (17:07)
--- NOTE | 2018-09-10 17:45 | PN ---
Progress Note Date of Service: 09/10/18 Note: JENNIFER RYDER was visited. Therapy notes read and reviewed. Unable to get leg into bed. 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 No other complaints. Pain well controlled Current Medications: Active Medications Generic Name Dose Route Start Last Admin Trade Name Freq PRN Reason Stop Dose Admin Acetaminophen 650 mg 09/08/18 14:19 09/08/18 19:36 Tylenol Tab* PO 650 mg Q6H PRN Administration FEVER/PAIN Apixaban 2.5 mg 09/09/18 21:00 09/10/18 08:45 Eliquis* PO 2.5 mg BID DIANA Administration Atenolol 25 mg 09/09/18 09:00 09/10/18 08:45 Tenormin Tab* PO 25 mg DAILY DIANA Administration Atorvastatin Calcium 10 mg 09/09/18 17:00 09/10/18 17:07 Lipitor* PO 10 mg 1700 DIANA Administration Cyanocobalamin 1,000 mcg 09/09/18 09:00 09/10/18 08:45 Vitamin B12 Tab* PO 1,000 mcg DAILY DIANA Administration Dextrose 12.5 gm 09/08/18 14:38 D50w Syringe 50 Ml* IV PUSH .FOR FS < 60 - SS PRN FS < 60 Docusate Sodium 100 mg 09/08/18 21:00 09/10/18 07:19 Colace Cap* PO Not Given BID [facility] Insulin Glargine 20 units 09/10/18 09:00 09/10/18 08:46 Lantus(*) SUBCUT 20 units Q24H DIANA Administration Insulin Human Lispro 0 - 10 units 09/08/18 16:30 09/10/18 17:08 Humalog* SUBCUT 2 unit AC DIANA Administration Protocol Levothyroxine Sodium 125 mcg 09/09/18 06:00 09/10/18 06:40 Synthroid Tab* PO 125 mcg DAILY@0600 DIANA Administration Losartan Potassium 50 mg 09/09/18 09:00 09/10/18 08:46 Cozaar Tab* PO 50 mg DAILY DIANA Administration Magnesium Hydroxide 30 ml 09/08/18 14:19 Milk Of Magnesia Liq* PO Q6H PRN CONSTIPATION Multivitamins 1 tab 09/09/18 09:00 09/10/18 07:19 Theragran Tab* PO Not Given DAILY DIANA Oxycodone/Acetaminophen 1 tab 09/08/18 14:39 Percocet 5/325 Tab* PO Q4H PRN PAIN - MODERATE Senna 2 tab 09/08/18 14:19 Senokot Tab* PO BEDTIME PRN CONSTIPATION Vital Signs: Vital Signs Temp Pulse Resp BP Pulse Ox 98.6 F 78 18 121/44 97 09/10/18 15:03 09/10/18 15:03 09/10/18 15:03 09/10/18 15:03 09/10/18 15:03 Lab Results: Laboratory Results - last 24 hr 09/09/18 09/10/18 09/10/18 20:46 08:02 12:10 POC Glucose (mg/dL) 203 H 130 H 128 H 09/10/18 16:47 POC Glucose (mg/dL) 157 H Exam: GENERAL: In no distress HEENT: NC/AT. EOMI LUNGS: Clear bilaterally HEART: reg rhythm ABDOMEN: Soft, +BS EXTREMITIES: wound over LLE Clean NEUROLOGIC: A&O x3, Sensation intact. Motor 5/5 except LLE Assessment/Plan: 1. Left GILMER: WBAT. PT/OT. 2. DM: Lantus/Lispro. 3. Hypothyroidism: Synthroid 4. HTN: Tenormin/Cozaar 5. DVT Prophylaxis: Eliquis 6. Advanced Directives: Full Code 09/10/18 17:49
[2018-09-10] MEDS: Acetaminophen TAB* 325 MG PO PRN (21:15)
[2018-09-11] MEDS: Levothyroxine TAB* 125 MCG TAB PO SCH (06:15)
[2018-09-11] MEDS: Vitamin THERAPEUTIC TAB PO SCH (08:06)
[2018-09-11] MEDS: Docusate CAP* 100 MG PO SCH ×2 (08:06→20:47)
[2018-09-11] MEDS: Apixaban* 2.5 MG TAB PO SCH ×2 (08:06→20:47)
[2018-09-11] MEDS: Atenolol TAB* 25 MG PO SCH (08:06)
[2018-09-11] MEDS: Cyanocobalamin TAB* 500 MCG PO SCH (08:06)
[2018-09-11] MEDS: Losartan TAB* 25 MG PO SCH (08:06)
[2018-09-11] MEDS: Insulin LISPRO* 1 UNITS UNIT SUBCUT SCH ×3 (08:07→17:47)
[2018-09-11] MEDS: Insulin GLARGINE(*) 1 UNITS UNIT SUBCUT SCH (08:07)
--- NOTE | 2018-09-11 14:07 | PN ---
Progress Note Date of Service: 09/11/18 Note: JENNIFER RYDER was visited. Nursing notes read and reviewed. She is otherwise stable. No complaints of pain Current Medications: Active Medications Generic Name Dose Route Start Last Admin Trade Name Freq PRN Reason Stop Dose Admin Acetaminophen 650 mg 09/08/18 14:19 09/10/18 21:15 Tylenol Tab* PO 650 mg Q6H PRN Administration FEVER/PAIN Apixaban 2.5 mg 09/09/18 21:00 09/11/18 08:06 Eliquis* PO 2.5 mg BID DIANA Administration Atenolol 25 mg 09/09/18 09:00 09/11/18 08:06 Tenormin Tab* PO 25 mg DAILY DIANA Administration Atorvastatin Calcium 10 mg 09/09/18 17:00 09/10/18 17:07 Lipitor* PO 10 mg 1700 DIANA Administration Cyanocobalamin 1,000 mcg 09/09/18 09:00 09/11/18 08:06 Vitamin B12 Tab* PO 1,000 mcg DAILY DIANA Administration Dextrose 12.5 gm 09/08/18 14:38 D50w Syringe 50 Ml* IV PUSH .FOR FS < 60 - SS PRN FS < 60 Docusate Sodium 100 mg 09/08/18 21:00 09/11/18 08:06 Colace Cap* PO 100 mg BID DIANA Administration Insulin Glargine 20 units 09/10/18 09:00 09/11/18 08:07 Lantus(*) SUBCUT 20 units Q24H DIANA Administration Insulin Human Lispro 0 - 10 units 09/08/18 16:30 09/11/18 12:26 Humalog* SUBCUT 1 unit AC DIANA Administration Protocol Levothyroxine Sodium 125 mcg 09/09/18 06:00 09/11/18 06:15 Synthroid Tab* PO 125 mcg DAILY@0600 DIANA Administration Losartan Potassium 50 mg 09/09/18 09:00 09/11/18 08:06 Cozaar Tab* PO 50 mg DAILY DIANA Administration Magnesium Hydroxide 30 ml 09/08/18 14:19 Milk Of Magnesia Liq* PO Q6H PRN CONSTIPATION Multivitamins 1 tab 09/09/18 09:00 09/11/18 08:06 Theragran Tab* PO 1 tab DAILY DIANA Administration Oxycodone/Acetaminophen 1 tab 09/08/18 14:39 Percocet 5/325 Tab* PO Q4H PRN PAIN - MODERATE Senna 2 tab 09/08/18 14:19 Senokot Tab* PO BEDTIME PRN CONSTIPATION Vital Signs: Vital Signs Temp Pulse Resp BP Pulse Ox 97.7 F 73 16 142/62 97 09/11/18 06:19 09/11/18 06:19 09/11/18 08:00 09/11/18 06:19 09/11/18 08:00 Lab Results: Laboratory Results - last 24 hr 09/10/18 09/10/18 09/11/18 16:47 20:50 07:53 POC Glucose (mg/dL) 157 H 191 H 141 H 09/11/18 11:58 POC Glucose (mg/dL) 144 H Exam: GENERAL: In no distress HEENT: NC/AT. EOMI LUNGS: Clear bilaterally HEART: reg rhythm ABDOMEN: Soft, +BS EXTREMITIES: wound over LLE Clean NEUROLOGIC: A&O x3, Sensation intact. Motor 5/5 except LLE Assessment/Plan: 1. Left GILMER: WBAT. PT/OT. 2. DM: Lantus/Lispro. 3. Hypothyroidism: Synthroid 4. HTN: Tenormin/Cozaar 5. DVT Prophylaxis: Eliquis 6. Advanced Directives: Full Code 09/11/18 14:07
[2018-09-11] MEDS: Atorvastatin* 10 MG TAB PO SCH (17:47)
[2018-09-11] MEDS: Acetaminophen TAB* 325 MG PO PRN (20:58)
[2018-09-12] MEDS: Levothyroxine TAB* 125 MCG TAB PO SCH (05:47)
[2018-09-12] MEDS: Apixaban* 2.5 MG TAB PO SCH ×2 (08:07→20:54)
[2018-09-12] MEDS: Cyanocobalamin TAB* 500 MCG PO SCH (08:08)
[2018-09-12] MEDS: Vitamin THERAPEUTIC TAB PO SCH (08:08)
[2018-09-12] MEDS: Docusate CAP* 100 MG PO SCH ×2 (08:08→20:54)
[2018-09-12] MEDS: Acetaminophen TAB* 325 MG PO PRN ×2 (08:08→20:54)
[2018-09-12] MEDS: Losartan TAB* 25 MG PO SCH (08:08)
[2018-09-12] MEDS: Atenolol TAB* 25 MG PO SCH (08:08)
[2018-09-12] MEDS: Insulin GLARGINE(*) 1 UNITS UNIT SUBCUT SCH (08:09)
[2018-09-12] MEDS: Insulin LISPRO* 1 UNITS UNIT SUBCUT SCH ×3 (08:12→16:42)
[2018-09-12] MEDS: Atorvastatin* 10 MG TAB PO SCH (16:46)
--- NOTE | 2018-09-12 16:59 | PN ---
Progress Note Date of Service: 09/12/18 Note: JENNIFER RYDER was visited. Therapy notes read and reviewed. She is doing well and eager to go home tomorrow. Her pain is minimal. Current Medications: Active Medications Generic Name Dose Route Start Last Admin Trade Name Freq PRN Reason Stop Dose Admin Acetaminophen 650 mg 09/08/18 14:19 09/12/18 08:08 Tylenol Tab* PO 650 mg Q6H PRN Administration FEVER/PAIN Apixaban 2.5 mg 09/09/18 21:00 09/12/18 08:07 Eliquis* PO 2.5 mg BID DIANA Administration Atenolol 25 mg 09/09/18 09:00 09/12/18 08:08 Tenormin Tab* PO 25 mg DAILY DIANA Administration Atorvastatin Calcium 10 mg 09/09/18 17:00 09/12/18 16:46 Lipitor* PO 10 mg 1700 DIANA Administration Cyanocobalamin 1,000 mcg 09/09/18 09:00 09/12/18 08:08 Vitamin B12 Tab* PO 1,000 mcg DAILY DIANA Administration Dextrose 12.5 gm 09/08/18 14:38 D50w Syringe 50 Ml* IV PUSH .FOR FS < 60 - SS PRN FS < 60 Docusate Sodium 100 mg 09/08/18 21:00 09/12/18 08:08 Colace Cap* PO 100 mg BID DIANA Administration Hydrochlorothiazide 12.5 mg 09/13/18 09:00 Hydrodiuril Tab* PO DAILY [facility] Insulin Glargine 30 units 09/13/18 09:00 Lantus(*) SUBCUT Q24H [facility] Insulin Human Lispro 0 - 10 units 09/08/18 16:30 09/12/18 16:42 Humalog* SUBCUT Not Given [facility] Protocol Levothyroxine Sodium 125 mcg 09/09/18 06:00 09/12/18 05:47 Synthroid Tab* PO 125 mcg DAILY@0600 [facility] Administration Losartan Potassium 50 mg 09/09/18 09:00 09/12/18 08:08 Cozaar Tab* PO 50 mg DAILY DIANA Administration Magnesium Hydroxide 30 ml 09/08/18 14:19 Milk Of Magnesia Liq* PO Q6H PRN CONSTIPATION Multivitamins 1 tab 09/09/18 09:00 09/12/18 08:08 Theragran Tab* PO 1 tab DAILY DIANA Administration Oxycodone/Acetaminophen 1 tab 09/08/18 14:39 Percocet 5/325 Tab* PO Q4H PRN PAIN - MODERATE Senna 2 tab 09/08/18 14:19 Senokot Tab* PO BEDTIME PRN CONSTIPATION Vital Signs: Vital Signs Temp Pulse Resp BP Pulse Ox 97.7 F 77 16 114/48 98 09/12/18 15:59 09/12/18 15:59 09/12/18 15:59 09/12/18 15:59 09/12/18 15:59 Lab Results: Laboratory Results - last 24 hr 09/11/18 09/11/18 09/12/18 17:10 20:25 07:58 POC Glucose (mg/dL) 138 H 184 H 147 H 09/12/18 09/12/18 12:02 16:36 POC Glucose (mg/dL) 132 H 124 H Exam: GENERAL: In no distress HEENT: NC/AT. EOMI LUNGS: Clear bilaterally HEART: reg rhythm ABDOMEN: Soft, +BS EXTREMITIES: wound over LLE Clean NEUROLOGIC: A&O x3, Sensation intact. Motor 5/5 except LLE Assessment/Plan: 1. Left GILMER: WBAT. PT/OT. 2. DM: Lantus/Lispro. 3. Hypothyroidism: Synthroid 4. HTN: Tenormin/Cozaar. Resume HCTZ 5. DVT Prophylaxis: Eliquis 6. Advanced Directives: Full Code 09/12/18 16:59
[2018-09-13 06:22] VITALS: BP 125/48
[2018-09-13] MEDS: Vitamin THERAPEUTIC TAB PO SCH (08:20)
[2018-09-13] MEDS: Levothyroxine TAB* 125 MCG TAB PO SCH (08:20)
[2018-09-13] MEDS: Atenolol TAB* 25 MG PO SCH (08:20)
[2018-09-13] MEDS: Losartan TAB* 25 MG PO SCH (08:20)
[2018-09-13] MEDS: Apixaban* 2.5 MG TAB PO SCH (08:20)
[2018-09-13] MEDS: Docusate CAP* 100 MG PO SCH (08:20)
[2018-09-13] MEDS: Cyanocobalamin TAB* 500 MCG PO SCH (08:20)
[2018-09-13] MEDS ORDERED: Insulin GLARGINE(*) 1 UNITS UNIT SUBCUT SCH (09:00)
[2018-09-13] MEDS ORDERED: Hydrochlorothiazide TAB* 25 MG PO SCH (09:00)
[2018-09-13] MEDS: Insulin LISPRO* 1 UNITS UNIT SUBCUT SCH (09:18)
--- NOTE | 2018-09-13 17:04 | DS ---
CC: Dr. Jing Montiel * DISCHARGE SUMMARY: DATE OF ADMISSION: 09/08/18 DATE OF DISCHARGE: 09/13/18 DISCHARGE DIAGNOSES: 1. Left total hip replacement. 2. Diabetes mellitus. 3. History of breast cancer. 4. Hypothyroidism. 5. Hypertension. 6. Chronic kidney disease. HISTORY OF PRESENT ILLNESS AND HOSPITAL COURSE: For complete history of the events leading up to her rehab stay, please see the history and physical dictated by me on 09/08/18. While on the rehab unit, the patient remained stable from a medical point of view. She was maintained on Eliquis for DVT prophylaxis. She did have routine fingersticks done. Her Lantus dose was slowly increased. The patient otherwise was medically stable. She was seen by Physical Therapy and Occupational Therapy while on the rehab unit. She made good gains with both disciplines. With physical therapy at the time of admission, the patient required contact guard to transfer, she was able to ambulate 50 feet with contact guard. With occupational therapy at the time of discharge, she was contact guard for toilet transfers, contact guard for toileting. She was supervision for upper body dressing, min assist for lower body dressing. By the time of discharge, the patient was independent with transfers, independent ambulating 500 feet, independent going up and down a flight of stairs, independent with her activities of daily living. She did require assistance for her shoes as needed, although she did know how to use the adaptive equipment, she prefers to have her do it. She was independent with toileting and cooking. The patient was discharged home on 07/20. DISCHARGE DIET: Consistent carbohydrate. DISCHARGE MEDICATIONS: 1. Eliquis 2.5 mg orally twice a day. 2. Atenolol 25 mg daily. 3. Lipitor 10 mg daily. 4. Vitamin B12 1000 mcg daily. 5. Hydrochlorothiazide 12.5 mg daily. 6. Synthroid 125 mcg daily. 7. Cozaar 50 mg daily. 8. Lantus insulin 50 units subcutaneously every morning. 9. Potassium citrate 5 mEq 4 times a day. 10. Omeprazole 20 mg daily. 11. Arimidex 1 mg daily. SERVICES AFTER DISCHARGE: Through visiting nurse services, she will have home nursing and home physical therapy. Follow up with Dr. Melba Workman in 1 to 2 weeks as well as with Dr. Carola Montiel in 2 to 4 weeks. [id number]/[facility] #: [id number] [facility]
== END 2018-09-13 11:00 | disposition home health service (06) | DRG 561 ==
LOC: PMRU 13:48
PROVIDERS: ADMIT Physical Medicine & Rehabilitation; ATTEND Physical Medicine & Rehabilitation
PROC: F07Z5ZZ Bed Mobility Treatment (ICD-10-PCS; principal; 2018-09-08)
PROC: F07Z9ZZ Gait Training/Functional Ambulation Treatment (ICD-10-PCS; 2018-09-08)
PROC: F07Z8ZZ Transfer Training Treatment (ICD-10-PCS; 2018-09-08)
PROC: F08Z0ZZ Bathing/Showering Techniques Treatment (ICD-10-PCS; 2018-09-08)
PROC: F08Z1ZZ Dressing Techniques Treatment (ICD-10-PCS; 2018-09-08)
PROC: F08Z3ZZ Feeding/Eating Treatment (ICD-10-PCS; 2018-09-08)
DX: Z47.1 Aftercare following joint replacement surgery (principal); Z96.642 Presence of left artificial hip joint; E11.22 Type 2 diabetes mellitus with diabetic chronic kidney disease; I12.9 Hypertensive chronic kidney disease with stage 1 through stage 4 chronic kidney disease, or unspecified chronic kidney disease; N18.9 Chronic kidney disease, unspecified; E03.9 Hypothyroidism, unspecified; Z85.3 Personal history of malignant neoplasm of breast; Z88.1 Allergy status to other antibiotic agents; Z88.5 Allergy status to narcotic agent; Z88.0 Allergy status to penicillin; Z88.8 Allergy status to other drugs, medicaments and biological substances; Z79.4 Long term (current) use of insulin; Z79.899 Other long term (current) drug therapy
CPT/HCPCS: 36415; 80053; 85025; 85610; A9270-GY